=== PATIENT | female | born 1960 | race Caucasian/White ===

== ENCOUNTER 2018-10-16 17:56 | Emergency (ER) | payer MEDICAID, SELFPAY ==
[2018-10-16 17:56] VITALS: BP 161/80; PULSE 86; RESP 18; TEMP 36.8; O2SAT 97; BMI 42.6
[2018-10-16] MEDS: Orphenadrine 60 MG/2 ML Ampul IM (18:47)
[2018-10-16] MEDS: Ketorolac 30 MG/ML Syringe IM (18:47)
--- NOTE | 2018-10-16 18:50 | RAD_ITS ---
STUDY: X-RAY - LUMBAR SPINE REASON FOR EXAM: Female, 58 years old. Low back pain 2 days after straining back. TECHNIQUE: 3 view(s) of the lumbar spine were obtained. COMPARISON: None FINDINGS: Normal lumbar lordosis. There is no substantial scoliosis. There is a normal alignment of the vertebrae. There is anterior endplate osteophyte formation at L2-3, and minor anterior endplate spurring at L3-4 There is multi-level degenerative disc disease with multi-level mild to moderate disc space narrowing. There is no demonstrated fracture. Degenerative changes noted in the lower lumbar facet joints. Surgical clips of prior cholecystectomy project in the right upper quadrant of the abdomen. RAD/Lumbar Spine 2 or 3 Views IMPRESSION: Degenerative changes of the spine, as detailed above. There is no demonstrated acute fracture. Electronically Signed: Jan Beckett MD at 19:14 EDT , Service support ,
--- NOTE | 2018-10-16 19:46 | ED.VISSUMM ---
- ER Visit Summary Date of Service: 10/16/18 Chief Complaint: Back pain History of Present Illness: The patient is a 58 F with back pain after sitting on a new couch constantly for the past 2 to 3 days. Apparently she got a new couch she has been sitting on it and it is more stiff than her prior couch. No other factors. She has no radiation to her leg no bowel or bladder compromise. Physical Examination: Otherwise normal exam no suprapubic mass, tenderness is in the lower spinal region L2-L5 and paraspinal region. Negative straight leg test. Normal reflexes normal plantar flexion dorsiflexion of both feet and great toes bilaterally. Emergency Department Course and Treatment: LS spine x-ray is negative. I will discharge with analgesia. Disposition: [Discharge stable condition] Impression: [Lumbar strain] This note was generated with [employer] dictation software. It may contain incorrect words, spelling, and punctuation that were not noted in review of the chart prior to signing ED Disposition - Plan for ED Patient: Disposition: Home or Assisted Living Instructions: ED Sprain Strain Lumbar Prescriptions: Naproxen [Naprosyn] 500 mg PO BID PRN #20 tab cycloBENZAPRine HCl [Flexeril] 10 mg PO TID PRN #20 tab PRN Reason: Muscle Spasm Referrals: Sarah Jimenez, COATING TECHNICIAN-C [Primary Care Provider] - 3-5 Days
--- NOTE | 2018-10-16 19:50 | ED.DCSUM_ITS ---
- ER Visit Summary Date of Service: 10/16/18 Chief Complaint: Back pain History of Present Illness: The patient is a 58 F with back pain after sitting on a new couch constantly for the past 2 to 3 days. Apparently she got a new couch she has been sitting on it and it is more stiff than her prior couch. No other factors. She has no radiation to her leg no bowel or bladder compromise. Physical Examination: Otherwise normal exam no suprapubic mass, tenderness is in the lower spinal region L2-L5 and paraspinal region. Negative straight leg test. Normal reflexes normal plantar flexion dorsiflexion of both feet and great toes bilaterally. Emergency Department Course and Treatment: LS spine x-ray is negative. I will discharge with analgesia. Disposition: [Discharge stable condition] Impression: [Lumbar strain] This note was generated with [employer] dictation software. It may contain incorrect words, spelling, and punctuation that were not noted in review of the chart prior to signing ED Disposition - Plan for ED Patient: Disposition: Home or Assisted Living Instructions: ED Sprain Strain Lumbar Prescriptions: Naproxen [Naprosyn] 500 mg PO BID PRN #20 tab cycloBENZAPRine HCl [Flexeril] 10 mg PO TID PRN #20 tab PRN Reason: Muscle Spasm Referrals: Sarah Jimenez, ENGINE CLEANER-C [Primary Care Provider] - 3-5 Days
[2018-10-16 20:10] VITALS: BP 113/66; PULSE 74; RESP 18; O2SAT 96
== END 2018-10-16 20:11 | disposition home or self-care (01) ==
PROVIDERS: Emergency Provider Emergency Medicine; Family Provider Nurse Practitioner Family; PCP Nurse Practitioner Family
DX: S39.012A Strain of muscle, fascia and tendon of lower back, initial encounter (principal); I10 Essential (primary) hypertension; Z72.0 Tobacco use; Z79.899 Other long term (current) drug therapy; X50.9XXA Other and unspecified overexertion or strenuous movements or postures, initial encounter; Y93.89 Activity, other specified; Y92.008 Other place in unspecified non-institutional (private) residence as the place of occurrence of the external cause; Y99.8 Other external cause status
CPT/HCPCS: 72100; 96372; 99282

== ENCOUNTER 2018-11-02 09:20 | Emergency (ER) | payer MEDICAID, SELFPAY ==
[2018-11-02 09:22] VITALS: BP 161/112; PULSE 115; RESP 16; TEMP 37.2; O2SAT 94; BMI 40.9
--- NOTE | 2018-11-02 09:48 | ED.VIS.GEN ---
History of Present Illness Chief Complaint: Asthma Informant: Patient Onset: Days Current Severity: Mild Narrative: Reports history of asthma and chronic cough and smoking, she reports for the last 3 days her cough seems worse she still has a sense of wheezing despite using her hand-held nebulizer and rescue inhaler she presents the emergency department. No fever no cough that is different really just persistent no sputum no chest pain abdominal pain history of MS PE or DVT indicates her cough and wheezing are generally well controlled she is not recently been on steroids she has no history of CHF or pneumonias Past Medical History - Allergies and Home Meds Allergies/Adverse Reactions: Allergies bacitracin Allergy (Verified 11/02/18 09:21) Swelling Penicillins Allergy (Verified 11/02/18 09:21) Shortness of breath Sulfa (Sulfonamide Antibiotics) Allergy (Verified 11/02/18 09:21) Hives Primary Care Physician: Sarah Jimenez NP-C [Primary Care Provider] - Past Medical History: - Surgical History: cholecystectomy Smoking Status: Current every day smoker Review of Systems ROS: - See above General: Denies: Chills, Fever, Sweats Eyes: Denies: Visual changes - bilaterally, Diplopia ENT: Denies: Rhinorrhea, Sore throat Cardiovascular: Denies: Chest pain, Palpitations Respiratory: Reports: Cough. Denies: Dyspnea, Dyspnea on exertion Gastrointestinal: Denies: Abdominal pain, Nausea, Vomiting, Diarrhea, Melena, Hematochezia Genitourinary: Denies: Dysuria, Hematuria, Frequency Musculoskeletal: Denies: Back pain, Extremity Pain Skin: Denies: Rash, Wounds Neurological: Denies: Headache, Weakness, Numbness Physical Exam Vital Signs/Narrative: Vital Signs Temp Pulse Resp BP Pulse Ox 11/02/18 09:22 98.9 F 115 H 16 161/112 H 94 General: Well nourished, Well developed, No Acute Distress Head: Normocephalic, Atraumatic Eyes: Perrl, EOMI ENT: Moist mucous membranes, No rhinorrhea Neck: Supple, Nontender Cardiovascular: Regular rate, Regular rhythm, No murmurs Respiratory: No distress, CTA bilaterally, Chest nontender, Wheezing, - - Is minimal wheezing good excursion her pulse ox is 95 she is speaking full sense that she has a dry cough here but is nonproductive and persistent Abdomen: Soft, Nontender, Nondistended, Normal bowel sounds Back: Nontender, Normal Inspection Extremities: Nontender, No edema Skin: Normal color, No rash Neurological: Alert, Oriented x3, Cranial nerves II-XII grossly intact, Normal Strength, Normal Sensation Psychological: Normal affect, Normal Mood Diagnostic/Tx/Re-eval - Medical Decision Making Her main issue seems to be this harsh dry cough that she has had for a few days that appears to be causing her to wheeze Patient's chest x-ray shows nothing acute or gross see that report, on reevaluation she is resting comfortably she is received aerosol she is feeling better Kenalog IM was also given, we discussed inpatient versus outpatient management she states she wants to go home she feels if she can manage her asthma at home, did discuss the concept of the potential right lower lobe infiltrate radiology noted on x-ray she will be started on Levaquin however she is out of all of her medicines and will be provided refills for her nebulizer and handheld and she will follow-up with her physicians in the next day or to return for change in symptoms Home stable Final impression Right lower lobe infiltrate Acute exacerbation of asthma improved ED Disposition - Plan for ED Patient: Diagnosis: Chronic bronchitis, Asthma attack, Pneumonia Instructions: ASTHMA, Acute (Adult) Prescriptions: Levofloxacin [Levaquin] 750 mg PO DAILY #7 tab Prescription Printed Albuterol Aerosols [Ventolin Aerosols] 2.5 mg INHALATION Q4H PRN #25 vial Prescription Printed Albuterol Inhaler [Ventolin Hfa] 1 - 2 puff INHALATION Q4H PRN PRN #1 inhaler PRN Reason: Wheezing Prescription Printed Referrals: Sarah Jimenez NP-C [Primary Care Provider] -
[2018-11-02] MEDS: Ipratropium/Albuterol Sulfate 3 ML AMPUL.NEB INHALATION ×2 (09:51→12:01)
[2018-11-02 09:54] VITALS: PULSE 97; RESP 35
[2018-11-02] MEDS: Triamcinolone Acetonide 40 MG/ML Vial IM (09:56)
--- NOTE | 2018-11-02 10:15 | RAD_ITS ---
HISTORY: Shortness of breath intermittently 3 days XR Chest 2 Views TECHNIQUE: Frontal and lateral views of chest. # of images incl. paperwork: 2 COMPARISON: 05/07/2014 FINDINGS: Normal cardiomediastinal silhouette. Pulmonary vasculature appears normal. Very subtle patchy alveolar opacities right lower lobe seen on the frontal projection versus artifactual due to summation shadows. Otherwise, remainder of the lungs are clear. No pleural effusions or pneumothorax. No acute osseous abnormality of the thorax. RAD/Chest PA and Lateral IMPRESSION: 1. Query subtle right lower lobe airspace disease which may represent pneumonitis versus artifactual due to summation shadows. 2. No other acute cardiopulmonary disease. at 1307 Reported and signed by: Misha Orellana MD Electronically Signed: Misha Orellana MD at 13:06 EDT Tel , Service support ,
[2018-11-02 11:57] VITALS: BP 155/86; PULSE 92; RESP 18; O2SAT 92
[2018-11-02 12:03] VITALS: PULSE 93; RESP 24
[2018-11-02 13:10] VITALS: BP 165/77; PULSE 87; RESP 16; O2SAT 93
[2018-11-02 13:55] VITALS: BP 180/74; PULSE 92; RESP 15; O2SAT 96
[2018-11-02] MEDS: levoFLOXacin 750 MG Tablet PO (13:55)
== END 2018-11-02 13:57 | disposition home or self-care (01) ==
LOC: ED 10:34
PROVIDERS: Emergency Provider Emergency Medicine; Family Provider Nurse Practitioner Family; PCP Nurse Practitioner Family
DX: J18.9 Pneumonia, unspecified organism (principal); J45.909 Unspecified asthma, uncomplicated; Z79.51 Long term (current) use of inhaled steroids
CPT/HCPCS: 71046; 94640; 96372; 99282

== ENCOUNTER → 2018-12-01 | Outpatient (CLI) | payer MEDICAID, SELFPAY ==
[2018-11-02 09:22] VITALS: BMI 40.9
--- NOTE | 2018-12-01 11:35 | BI_ITS ---
MAMMOGRAPHY - BILATERAL SCREENING REASON FOR EXAM: Female, 58 years old. Routine annual screening examination. PERTINENT HISTORY: Grandmother with breast cancer. TECHNIQUE: Digital bilateral breast wen (3D mammographic acquisition) in the CC and MLO projections. 2-D mediolateral oblique (MLO) and craniocaudad (CC) views of both breasts were obtained. CAD: Full Field Digital Mammography with Computer Added Detection was performed. COMPARISON: Comparison is made with prior examination of July 30, 2016. FINDINGS: Breast Composition: There are scattered areas of fibroglandular density. There are no dominant masses or suspicious calcifications. Stable small benign-appearing bilateral axillary lymph nodes. No other significant abnormalities are identified. There has been no significant change since the prior study. BI/SCREEN MAMM (CAD) W/WEN BILAT IMPRESSION: Stable bilateral screening mammogram. Yearly follow-up mammogram recommended. (A) ASSESSMENT CATEGORY: BIRADS Category 2: Benign. A letter regarding these results will be sent to the patient by the facility within 30 days. Approximately 10% of breast cancers are not detected by mammography. A normal mammogram should not delay biopsy of a clinically suspicious abnormality. [id number] Electronically Signed: Maurice Butler, at 14:01 EDT , Service support ,
== END | disposition home or self-care (01) ==
LOC: OPBI 11:34
DX: Z12.31 Encounter for screening mammogram for malignant neoplasm of breast (principal)
CPT/HCPCS: 77063; 77067

== ENCOUNTER → 2019-01-30 | Outpatient (CLI) | payer MEDICAID, SELFPAY ==
--- NOTE | 2019-01-30 08:37 | NM_ITS ---
CLINICAL: 58-year-old female with reported history of heat intolerance and unexpected weight gain. I-123 THYROID UPTAKE COMPARISON: None available FINDINGS: The patient was administered a 304 uCi I-123 capsule by mouth. The 24-hour I-123 radioactive iodine thyroidal uptake was calculated to be 18.6 % (normal 5 to 40 %). The I-123 thyroid scan was not obtained. NM/Thyroid Uptake Single or Mult IMPRESSION: 1. NORMAL 24-hour I-123 radioactive iodine thyroidal uptake. 2. The I-123 thyroid scan was not acquired. Electronically Signed: Rey Eid DO at 8:22 EDT Tel , Service support ,
== END | disposition home or self-care (01) ==
LOC: NM 08:36
PROVIDERS: Referring Provider Nurse Practitioner Family; Visit Provider Nurse Practitioner Family
DX: R94.6 Abnormal results of thyroid function studies (principal)
CPT/HCPCS: 78012; A9516

== ENCOUNTER 2019-02-13 13:24 | Emergency (ER) | payer MEDICAID, SELFPAY ==
[2019-02-13 13:26] VITALS: BP 165/110; PULSE 128; RESP 16; TEMP 36.6; O2SAT 97; BMI 42.0
--- NOTE | 2019-02-13 14:17 | ED.VIS.GEN ---
History of Present Illness Chief Complaint: Abscess Narrative: Patient presenting due to concern for an abscess. Patient states that over the course of the last 3 days she has been developing a lump in her right groin that is painful. She does endorse that she has been having some mild nausea and chills associated with this. She denies any measurable fevers. She denies any prior similar episodes in the past. Patient states that she does not have a history of diabetes. Pain is sharp worse with palpation and movement. Review of systems otherwise negative. Past Medical History - Allergies and Home Meds Allergies/Adverse Reactions: Allergies bacitracin Allergy (Verified 02/13/19 13:26) Swelling Penicillins Allergy (Verified 02/13/19 13:26) Shortness of breath Sulfa (Sulfonamide Antibiotics) Allergy (Verified 02/13/19 13:26) Hives Primary Care Physician: aKylah Aguirre [Primary Care Provider] - Past Medical History: - - Hypertension Surgical History: cholecystectomy Smoking Status: Current every day smoker Review of Systems All systems negative except as indicated General: Reports: Chills Skin: Reports: Abscess Physical Exam Vital Signs/Narrative: Vital Signs Temp Pulse Resp BP Pulse Ox 02/13/19 13:26 97.8 F 128 H 16 165/110 H 97 Inital Vital Signs reviewed: Yes General: Well nourished, Well developed, No Acute Distress Head: Normocephalic, Atraumatic Eyes: Perrl, EOMI ENT: Moist mucous membranes, No rhinorrhea Neck: Supple, Nontender Cardiovascular: Regular rate, Regular rhythm, No murmurs Respiratory: No distress, CTA bilaterally, Chest nontender Abdomen: Soft, Nontender, Nondistended, Normal bowel sounds : - - Chaperoned exam shows evidence of a area of fluctuance just to the right lateral side of the patient's right labia majora. There is fluctuance about 2 cm in length. There is induration that measures may be about 10 cm with overlying erythema. Back: Nontender, Normal Inspection Extremities: Nontender, No edema Skin: Normal color, No rash Neurological: Alert, Oriented x3, Cranial nerves II-XII grossly intact, Normal Strength, Normal Sensation Psychological: Normal affect, Normal Mood Diagnostic/Tx/Re-eval - Medical Decision Making Patient presented secondary to a groin abscess. This does not seem to have evidence of Leonor's gangrene, patient is otherwise nontoxic. He was incised and drained as noted in the procedure note. Given the overlying skin changes she will be placed on a course of doxycycline due to medication allergies. She will follow-up with primary care for packing removal and wound recheck. Procedures Procedure(s): Patient was placed in a supine position. Direct lighting was utilized, area was cleansed with an alcohol prep. A total of 10 cc of 1% lidocaine were injected to achieve anesthesia. An 11 blade was used with a stab incision approximately 1 cm long. Copious amounts of foul-smelling purulence were expressed. The area was probed and deloculated with curved hemostats. It was then copiously irrigated with saline, and quarter inch iodoform packing was then placed. ED Disposition - Plan for ED Patient: Disposition: Home or Assisted Living Diagnosis: Groin abscess Instructions: ABSCESS, Incision and Drainage Prescriptions: Doxycycline 100 mg PO BID #20 cap Prescription Printed Referrals: Kaylah Aguirre [Primary Care Provider] - 2 Days for wound check
[2019-02-13 14:30] VITALS: TEMP 36.6
== END 2019-02-13 14:45 | disposition home or self-care (01) ==
PROVIDERS: Emergency Provider Emergency Medicine
DX: L02.214 Cutaneous abscess of groin (principal); I10 Essential (primary) hypertension; F17.200 Nicotine dependence, unspecified, uncomplicated

== ENCOUNTER 2019-02-13 15:42 | Emergency (ER) | payer MEDICAID, SELFPAY ==
[2019-02-13 13:26] VITALS: BMI 42.0
[2019-02-13 15:43] VITALS: BP 133/73; PULSE 123; RESP 18; TEMP 39.4; O2SAT 95; BMI 42.0
--- NOTE | 2019-02-13 15:54 | ED.VIS.GEN ---
History of Present Illness Chief Complaint: Fever Informant: Patient Onset: Today Current Severity: Moderate Maximum Severity: Moderate Narrative: Patient returns to the ED via EMS. She was just discharged from the ED after having a right labial/groin abscess drained. Patient states she was at the pharmacy to get her prescriptions when she started having shaking chills. This persisted for 1/2-hour. Staff at the pharmacy called the emergency squad for her. She states for the time they arrived her chills had resolved. She states over the past couple days she had some mild chills and some body aches. Past Medical History - Allergies and Home Meds Allergies/Adverse Reactions: Allergies bacitracin Allergy (Verified 02/13/19 13:26) Swelling Penicillins Allergy (Verified 02/13/19 13:26) Shortness of breath Sulfa (Sulfonamide Antibiotics) Allergy (Verified 02/13/19 13:26) Hives Primary Care Physician: Kaylah Aguirre [Primary Care Provider] - Prior records reviewed: Yes Past Medical History: - - Reviewed Surgical History: cholecystectomy Smoking Status: Current every day smoker Review of Systems General: Reports: Chills, Fever Eyes: Denies: Visual changes - bilaterally ENT: Denies: Bilateral ear pain Cardiovascular: Denies: Chest pain Respiratory: Denies: Dyspnea Gastrointestinal: Denies: Abdominal pain Genitourinary: Reports: - - Right groin pain Musculoskeletal: Denies: Extremity Pain Skin: Denies: Rash Neurological: Denies: Headache Physical Exam Vital Signs/Narrative: Vital Signs Temp Pulse Resp BP Pulse Ox 02/13/19 15:43 103 F H 123 H 18 133/73 H 95 Inital Vital Signs reviewed: Yes General: Well nourished, Well developed Head: Normocephalic ENT: Moist mucous membranes Cardiovascular: Tachycardia Respiratory: No distress, CTA bilaterally Abdomen: Soft, Nontender Rectal: - - Right labial I&D site is clean. Packing is intact. No significant surrounding cellulitis. Neurological: Alert, Oriented x3 Psychological: Normal affect Diagnostic/Tx/Re-eval Laboratory Results 02/13/19 02/13/19 16:05 16:05 WBC 7.7 RBC 4.19 L Hgb 12.4 Hct 38.2 MCV 91.2 MCH 29.6 MCHC 32.5 RDW Std Deviation 45.3 H RDW Coeff of Keaton 13.5 Plt Count 189 MPV 10.2 Immature Gran % (Auto) 0.400 Neut % (Auto) 85.9 H Lymph % (Auto) 9.7 L [place] % (Auto) 2.7 Eos % (Auto) 1.0 Baso % (Auto) 0.3 Absolute Neuts (auto) 6.6 Absolute Lymphs (auto) 0.75 L Nucleated RBC % 0 Sodium 140 Potassium 4.2 Chloride 107 Carbon Dioxide 26.0 Anion Gap 7 BUN 24 H Creatinine 1.03 H Estim Creat Clear Calc 42.76 Est GFR (MDRD) Af Amer 71 Est GFR (MDRD) Non-Af 58 L BUN/Creatinine Ratio 23.3 H Glucose 124 H Calcium 9.0 - Medical Decision Making Patient was given Tylenol and a liter of IV fluid. 1 hour later her oral temperature still read 103. She was given a dose of ibuprofen. After 45 minutes temperature is now 101.4. She states she feels sweaty and I believe her fever just recently broke. She will continue Tylenol and ibuprofen at home. She will continue her doxycycline that was ordered earlier today. She is to follow-up in 2 days for wound check and wick removal. ED Disposition - Plan for ED Patient: Disposition: Home or Assisted Living Diagnosis: Fever, Abscess Instructions: ABSCESS, Incision and Drainage, FEVER CONTROL (Adult) Referrals: Kaylah Aguirre [Primary Care Provider] - 2 Days Additional Instructions: Tylenol given at 4:10pm Ibuprofen given at 5:15pm
[2019-02-13 16:08] VITALS: TEMP 39.6
[2019-02-13] MEDS: Acetaminophen 500 MG Tablet 1000 MG PO (16:10)
[2019-02-13] MEDS: 0.9% Normal Saline 1,000 ML 1000 ML IV (16:10)
[2019-02-13 16:15] LABS: Absolute Lymphocyte Count 0.75 X10^3/uL (0.83-4.51); Absolute Neutrophil Count 6.6 X10^3/uL (2.0-7.7); Basophil# 0.02 X10^3/uL; Basophil% 0.3 % (0-1); Eosinophil# 0.08 X10^3/uL; Hematocrit 38.2 % (37-47); Hemoglobin 12.4 g/dL (12.0-15.0); Lymphocyte # 0.75 X10^3/ul (4.0); Lymphocyte % 9.7 % (19-41); Mean Corp Hgb Conc 32.5 g/dL (32-36); Mean Corpuscular Hgb 29.6 pg (27.0-32.0); Mean Corpuscular Volume 91.2 fL (81-99); Mean Platelet Vol. 10.2 fl (6.2-12.0); Monocyte# 0.21 X10^3/uL; Monocyte% 2.7 % (0-10); NRBC Flagged by Analyzer 0 % (0-5); Neutrophil # 6.62 X10^3/uL (2.7-7.7); Neutrophil % 85.9 % (47-70); Platelet Count 189 K/mm3 (150-450); RBC Distribution Width CV 13.5 % (11.6-14.6); RBC Distribution Width SD 45.3 fl (35.1-43.9); Red Blood Count 4.19 M/mm3 (4.2-5.4); White Blood Count 7.7 K/mm3 (4.4-11.0)
[2019-02-13 16:34] LABS: Anion Gap 7 (5-15); BUN 24 mg/dL (7-18); BUN/Creat Ratio 23.3 RATIO (10-20); Chloride 107 mmol/L (98-107); Creatinine, Serum 1.03 mg/dL (0.55-1.02); EST Glomerular Filtration Rate 58 mL/min (>60); Est Glom Filt Rate - Afr Amer 71 mL/min (>60); Estimated Creatinine Clearance 42.76 ml/min; Glucose 124 mg/dL (74-106); Potassium 4.2 mmol/L (3.5-5.1); Sodium Level 140 mmol/L (136-145)
[2019-02-13 17:00] VITALS: BP 131/57; PULSE 110; RESP 18; TEMP 39.4; O2SAT 97
[2019-02-13] MEDS: Ibuprofen 600 MG Tablet PO (17:12)
[2019-02-13 18:06] VITALS: BP 106/49; PULSE 108; PULSE 110; RESP 18; TEMP 38.6; O2SAT 97
[2019-02-13 18:20] VITALS: BP 106/49; PULSE 104; RESP 18; TEMP 38.3; O2SAT 97
== END 2019-02-13 18:22 | disposition home or self-care (01) ==
PROVIDERS: Emergency Provider Emergency Medicine
DX: R50.9 Fever, unspecified (principal); L02.214 Cutaneous abscess of groin; I10 Essential (primary) hypertension; F17.200 Nicotine dependence, unspecified, uncomplicated
CPT/HCPCS: 10060; 80048; 85025; 96360; 99282; 99285; J7030; A4216

== ENCOUNTER → 2019-07-03 09:46 | Outpatient (CLI) | payer MEDICAID, SELFPAY ==
--- NOTE | 2019-07-03 09:51 | NM_ITS ---
CLINICAL: 58-year-old female with reported history of clinical thyrotoxicosis. I-123 THYROID UPTAKE and SCAN COMPARISON: I-123 thyroid uptake 01/31/2019 FINDINGS: The patient was administered a 290 uCi I-123 capsule by mouth. The 4-hour I-123 radioactive iodine thyroidal uptake was calculated to be 10.6 % (normal 5 to 25 %). The 24-hour I-123 radioactive iodine thyroidal uptake was calculated to be 30.7 % (normal 5 to 40 %) compared to 18.6% defined on the examination dated 01/31/2019. The I-123 thyroid scan demonstrates homogeneous radiopharmaceutical concentration throughout both lobes of a U-shaped thyroid gland. There are no colloidal parenchymal hypofunctioning-cold nodules noted in either lobe of the thyroid gland. NM/Thyroid Uptake Single or Mult IMPRESSION: 1. NORMAL 4- and 24-hour I-123 radioactive iodine thyroidal uptakes. 2. 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 Electronically Signed: Rey Eid DO at 10:21 EST Tel , Service support ,
== END ==
DX: R94.6 Abnormal results of thyroid function studies (principal)
CPT/HCPCS: 78012; A9516

== ENCOUNTER → 2020-01-10 07:37 | Outpatient (CLI) | payer MEDICAID, SELFPAY ==
--- NOTE | 2020-01-10 07:40 | BI_ITS ---
MAMMOGRAPHY - BILATERAL SCREENING REASON FOR EXAM: Female, 59 years old. Routine annual screening examination. PERTINENT HISTORY: Grandmother with breast cancer. Aunt with breast cancer. TECHNIQUE: Digital bilateral breast wen (3D mammographic acquisition) in the CC and MLO projections. 2-D mediolateral oblique (MLO) and craniocaudad (CC) views of both breasts were obtained. CAD: Full Field Digital Mammography with Computer Added Detection was performed. COMPARISON: Comparison is made with prior study dated 12/01/2018 and 07/30/2016. FINDINGS: Breast Composition: There are scattered areas of fibroglandular density. There are no dominant masses or suspicious calcifications. Stable benign-appearing bilateral axillary lymph nodes. No other significant abnormalities are identified. There has been no significant change since the prior study. BI/SCREEN MAMM (CAD) W/WEN BILAT IMPRESSION: Stable bilateral screening mammogram. Yearly follow-up mammogram recommended. (A) ASSESSMENT CATEGORY: BIRADS Category 2: Benign. A letter regarding these results will be sent to the patient by the facility within 30 days. Approximately 10% of breast cancers are not detected by mammography. A normal mammogram should not delay biopsy of a clinically suspicious abnormality. [id number] Electronically Signed: Maurice Butler, at 8:57 EDT , Service support ,
== END ==
PROVIDERS: Referring Provider Nurse Practitioner Family; Visit Provider Nurse Practitioner Family
DX: Z12.31 Encounter for screening mammogram for malignant neoplasm of breast (principal)
CPT/HCPCS: 77063; 77067

== ENCOUNTER → 2020-03-28 08:19 | Outpatient (CLI) | payer MEDICAID, SELFPAY ==
[2020-03-28 09:08] LABS: Basophil% 0.7 % (0-1); Eosinophils% 4.1 % (0-5); Hematocrit 38.4 % (37-47); Hemoglobin 12.3 g/dL (12.0-15.0); Lymphocyte % 21.1 % (19-41); Mean Corpuscular Hgb 28.7 pg (27.0-32.0); Mean Corpuscular Volume 89.7 fL (81-99); Mean Platelet Vol. 10.4 fl (6.2-12.0); Monocyte% 6.8 % (0-10); Neutrophil % 66.9 % (47-70); Platelet Count 221 K/mm3 (150-450); RBC Distribution Width CV 13.1 % (11.6-14.6); RBC Distribution Width SD 43.1 fl (35.1-43.9); Red Blood Count 4.28 M/mm3 (4.2-5.4); White Blood Count 7.3 K/mm3 (4.4-11.0)
[2020-03-28 09:09] LABS: Absolute Lymphocyte Count 1.54 X10^3/uL (0.83-4.51); Absolute Neutrophil Count 4.9 X10^3/uL (2.0-7.7); Basophil# 0.05 X10^3/uL; Lymphocyte # 1.54 X10^3/ul (4.0); NRBC Flagged by Analyzer 0 % (0-5); Neutrophil # 4.88 X10^3/uL (2.7-7.7)
[2020-03-28 09:57] LABS: ALB/GLOB Ratio 0.8 RATIO (0.9-2.4); AST(SGOT) 21 U/L (15-37); Alanine Aminotransfer ALT/SGPT 30 U/L (13-56); Albumin, Serum 3.4 g/dL (3.2-5.0); Alkaline Phosphatase 95 U/L (45-117); Anion Gap 3 (5-15); BUN 22 mg/dL (7-18); Calcium,Total 8.9 mg/dL (8.5-10.1); Chloride 108 mmol/L (98-107); Cholesterol 236 mg/dL (200); EST Glomerular Filtration Rate 54 mL/min (>60); Est Glom Filt Rate - Afr Amer 65 mL/min (>60); Globulin 4.4 g/dL (2.2-4.2); Glucose 103 mg/dL (74-106); High Density Lipoprotein 42 mg/dL; Potassium 4.5 mmol/L (3.5-5.1); Protein, Total 7.8 g/dL (6.4-8.2); Sodium Level 140 mmol/L (136-145); Triglycerides 291 mg/dL; Very Low Density Lipoprotein 58 mg/dL (5-40)
== END ==
DX: J45.909 Unspecified asthma, uncomplicated (principal); I10 Essential (primary) hypertension; E78.5 Hyperlipidemia, unspecified
CPT/HCPCS: 36415; 80053; 80061; 85025

== ENCOUNTER 2020-04-14 11:29 | Emergency (ER) | payer MEDICAID, SELFPAY ==
[2020-04-14 11:33] VITALS: BP 156/74; PULSE 93; RESP 16; TEMP 35.5; O2SAT 98; BMI 36.0
--- NOTE | 2020-04-14 12:09 | ED.VIS.GEN ---
History of Present Illness Chief Complaint: Lower Extremity Injury Informant: Patient Narrative: 59-year-old female states that yesterday she was pulling a wagon with heavy wet clothes in it. She took a step and felt a pop in the posterior aspect of her knee. She was able to continue walking though painful. She states that today it is more painful she has discomfort on the distal hamstring region. She states the pain radiates anteriorly. She denies ever having anything wrong with this knee in the past. - Past Medical History (1) GERD (gastroesophageal reflux disease) Status: Chronic (2) Chronic bronchitis Status: Chronic Past Medical History - Allergies and Home Meds Allergies/Adverse Reactions: Allergies bacitracin Allergy (Verified 04/14/20 11:31) Swelling Penicillins Allergy (Verified 04/14/20 11:31) Shortness of breath Sulfa (Sulfonamide Antibiotics) Allergy (Verified 04/14/20 11:31) Hives [facility] - Prior records reviewed: Yes Surgical History: cholecystectomy Smoking Status: Current every day smoker Drugs: None Review of Systems General: Denies: Chills, Fever, Sweats Eyes: Denies: Visual changes - bilaterally, Diplopia ENT: Denies: Rhinorrhea, Sore throat Cardiovascular: Denies: Chest pain, Palpitations Respiratory: Denies: Dyspnea, Cough, Dyspnea on exertion Gastrointestinal: Denies: Abdominal pain, Nausea, Vomiting, Diarrhea, Melena, Hematochezia Genitourinary: Denies: Dysuria, Hematuria, Frequency Musculoskeletal: Reports: Extremity Pain. Denies: Back pain Skin: Denies: Rash, Wounds Neurological: Denies: Headache, Weakness, Numbness Physical Exam Vital Signs/Narrative: Vital Signs Temp Pulse Resp BP Pulse Ox 04/14/20 11:33 96 F L 93 16 156/74 H 98 Inital Vital Signs reviewed: Yes General: Well nourished, Well developed, Obese, No Acute Distress Head: Normocephalic, Atraumatic Eyes: Perrl, EOMI ENT: Moist mucous membranes, No rhinorrhea Neck: Supple, Nontender Cardiovascular: Regular rate, Regular rhythm, No murmurs Respiratory: No distress, CTA bilaterally, Chest nontender Abdomen: Soft, Nontender, Nondistended, Normal bowel sounds Back: Nontender, Normal Inspection Extremities: No edema, Tenderness - No obvious effusion is palpated. No joint line tenderness. Ligaments are stable. No fullness in the popliteal fossa. Over the distal hamstring muscle and tendons. Skin: Normal color, No rash Neurological: Alert, Oriented x3, Cranial nerves II-XII grossly intact, Normal Strength, Normal Sensation Psychological: Normal affect, Normal Mood Diagnostic/Tx/Re-eval - Medical Decision Making My interpretation of the plain films of the left knee are negative for acute. The patient will be given crutches and Flaco wrap. Instructions to follow-up if not improved 10 to 14 days. ED Disposition - Plan for ED Patient: Disposition: Home or Assisted Living Diagnosis: Strain of left knee Instructions: ED Muscle Strain, Extremity, ED Knee Sprain Referrals: [facility],Kaylah Barbosa [Primary Care Provider] - 10-14 Days if not better
--- NOTE | 2020-04-14 12:30 | RAD_ITS ---
STUDY: X-RAY - LEFT KNEE REASON FOR EXAM: Female, 59 years old. PAIN TECHNIQUE: 4 view(s) of the knee. COMPARISON: None. FINDINGS: Normal visualized distal femur. Normal visualized proximal tibia and fibula. Normal proximal tibiofibular articulation. Normal medial femorotibial compartment. Normal lateral femorotibial compartment. Normal patellofemoral articulation. The soft tissue structures are unremarkable. RAD/Knee 4 or More Views IMPRESSION: Normal x-ray examination of the knee. Electronically Signed: Maurice Butler, at 14:25 EST , Service support ,
== END 2020-04-14 13:14 | disposition home or self-care (01) ==
LOC: ED 12:54
PROVIDERS: Emergency Provider Emergency Medicine
DX: S86.812A Strain of other muscle(s) and tendon(s) at lower leg level, left leg, initial encounter (principal); F17.200 Nicotine dependence, unspecified, uncomplicated; X58.XXXA Exposure to other specified factors, initial encounter
CPT/HCPCS: 73564; 99283

== ENCOUNTER → 2020-08-07 11:11 | Outpatient (CLI) | payer MEDICAID, SELFPAY ==
[2020-06-20 09:51] VITALS: BMI 43.0
--- NOTE | 2020-08-07 11:14 | EKG12_ITS ---
Test Reason : TACHY Blood Pressure : / mmHG Vent. Rate : 101 BPM Atrial Rate : 101 BPM P-R Int : 148 ms QRS Dur : 090 ms QT Int : 336 ms P-R-T Axes : 072 048 046 degrees QTc Int : 435 ms Sinus tachycardia Otherwise normal ECG Confirmed by STEPHANIE PENA, NATALIE ([id number]), editorial clerk CHRISTIANE HIDALGO ([id number]) on 08/11/2020 1:22:35 PM Referred By: [facility] Confirmed By:ALONDRA BROWN MD
== END ==
DX: R00.0 Tachycardia, unspecified (principal)
CPT/HCPCS: 93005

== ENCOUNTER → 2020-11-25 17:12 | Outpatient (CLI) | payer MEDICAID, SELFPAY ==
[2020-09-10 09:47] VITALS: BMI 36.0
--- NOTE | 2020-11-25 17:12 | MRI_ITS ---
STUDY: MRI RIGHT KNEE REASON FOR EXAM: Female, 60 years old. Knee pain. TECHNIQUE: Standardized fat and water weighted pulse sequences were obtained in all 3 orthogonal planes. COMPARISON: X-ray dated August 2020 FINDINGS: Patellofemoral articular cartilage preserved. Lateral compartment grade 2 cartilage loss of compressive sagittal image 14 series 3). Medial compartment grade 3/4 cartilage loss (sagittal image 29 series 3). Reactive bone marrow edema at the medial compartment. No acute fracture, dislocation or bone destruction. Lateral meniscus intact. Medial meniscus body/posterior horn radial tear (sagittal images 7 through 19 series 4). Chronic medial collateral ligament bowing with low-grade interstitial tear (coronal image 16 and axial image 17). Moderate volume joint effusion. No popliteal cyst. Mild soft tissue swelling. Normal distal semimembranosus, gracilis and semitendinosus tendons. Normal proximal tibiofibular articulation. Normal lateral collateral (fibular) ligament. Normal popliteus tendon. Normal biceps femoris tendon. Normal anterior cruciate ligament (ACL). Normal posterior cruciate ligament (PCL). Normal medial and lateral patellar retinaculum. Small quadriceps enthesophyte. Normal patellar tendon. Normal Hoffa''s fat pad. MRI/Lower Ext Joint Only (Routine) IMPRESSION: Medial meniscus body/posterior horn tear Chronic MCL bowing with low-grade interstitial tear Medial compartment moderate/severe cartilage loss with reactive bone marrow edema Lateral compartment mild cartilage loss Moderate volume joint effusion and soft tissue swelling Electronically Signed: Fredy Morejon DO at 9:09 EDT Tel , Service support ,
== END ==
DX: M17.11 Unilateral primary osteoarthritis, right knee (principal); M25.561 Pain in right knee
CPT/HCPCS: 73721

== ENCOUNTER → 2020-11-26 10:52 | Outpatient (CLI) | payer MEDICAID, SELFPAY ==
[2020-09-10 09:47] VITALS: BMI 36.0
[2020-11-26 12:19] LABS: ALB/GLOB Ratio 0.9 RATIO (0.9-2.4); AST(SGOT) 32 U/L (15-37); Alanine Aminotransfer ALT/SGPT 60 U/L (13-56); Albumin, Serum 3.6 g/dL (3.2-5.0); Alkaline Phosphatase 105 U/L (45-117); Anion Gap 6 (5-15); BUN 27 mg/dL (7-18); Calcium,Total 8.7 mg/dL (8.5-10.1); Chloride 107 mmol/L (98-107); Cholesterol 167 mg/dL (200); Creatinine, Serum 0.87 mg/dL (0.55-1.02); EST Glomerular Filtration Rate 70 mL/min (>60); Est Glom Filt Rate - Afr Amer 85 mL/min (>60); Globulin 3.8 g/dL (2.2-4.2); Glucose 94 mg/dL (74-106); High Density Lipoprotein 45 mg/dL; Potassium 4.3 mmol/L (3.5-5.1); Protein, Total 7.4 g/dL (6.4-8.2); Sodium Level 139 mmol/L (136-145); Triglycerides 154 mg/dL; Very Low Density Lipoprotein 31 mg/dL (5-40)
== END ==
DX: I10 Essential (primary) hypertension (principal); E78.5 Hyperlipidemia, unspecified
CPT/HCPCS: 36415; 80053; 80061

== ENCOUNTER 2020-12-09 06:26 | Day surgery (SDC) | payer MEDICAID, SELFPAY ==
[2020-12-03 10:51] VITALS: BMI 43.7
[2020-12-09] VITALS (7 sets, daily range): BP systolic 91–147; BP diastolic 58–79; PULSE 75–87; RESP 16–18; TEMP 36.2–36.7; O2SAT 93–100; BMI 42.9
--- NOTE | 2020-12-09 07:17 | HP.PCM_ITS ---
History and Physical Date of Admission: 12/09/20 Date of Service: 12/03/20 MR#:[id number]: OCHOA WHEELER ANNRep #:[id number]:1960 Provider:Dr. Jarred Burger DOAge/Sex: 60/F [place] [place] Intake Vital Signs 12/03/20 10:51 Height 5 ft Weight: 224 lb BMI 43.7 Intake Visit Reasons: RIGHT KNEE Is patient in pain?: Yes Allergies bacitracin Allergy (Verified 12/03/20 10:47) Swelling Penicillins Allergy (Verified 12/03/20 10:47) Shortness of breath Sulfa (Sulfonamide Antibiotics) Allergy (Verified 12/03/20 10:47) Hives Medications albuterol sulfate 1 - 2 puff INHALATION Q4H PRN PRN #1 inhaler 05/04/16 [Rx Confirmed 12/03/20] albuterol sulfate 2.5 mg INHALATION Q4H PRN #25 vial 05/04/16 [Rx Confirmed 12/03/20] lisinopril 20 mg PO DAILY 05/04/16 [History Confirmed 12/03/20] cholecalciferol (vitamin D3) 50,000 unit PO QWEEK 04/18/17 [History Confirmed 12/03/20] montelukast 10 mg PO DAILY 04/18/17 [History Confirmed 12/03/20] atorvastatin 10 mg tablet 10 mg PO tab 06/20/20 [History Confirmed 12/03/20] budesonide-formoterol HFA 80 mcg-4.5 mcg/actuation aerosol inhaler 2 puff INHALATION g 06/20/20 [History Confirmed 12/03/20] meloxicam 15 mg tablet 15 mg PO DAILY #30 tab 11/07/20 [Rx Confirmed 12/03/20] [facility] Medical History (Updated 12/03/20 @ 10:53 by Lisa Stephenson) HTN (hypertension) Social History (Updated 06/20/20 @ 10:[address] Jarred Burger DO) Smoking Status: Current every day smoker HPI RIGHT KNEE Details: Parts of this documentation were recorded by a scribe, this documentation accurately reflects the service provided and the decisions made by me, Dr. Jarred Burger DO 12/03/20 0733. OCHOA WHEELER is a 60 year old F here today for a followup after her right knee MRI. Patient states that she continues to have right painful mechanical medial knee pain. She complains of popping and clicking. She also notes that her knee shifts medially which is painful. She does feel the knee give out because of this. patient had an MRI which is here for review. She had one prior injection which was not helpful. Patient denies any bracing. She completed physical therapy which she stopped due to her popping per the therapists advice. She takes meloxicam for pain. ROS [facility] [place] Reports arthralgias, Reports joint swelling, Reports muscle weakness, Denies numbness and Denies tingling Skin/Breast Reports system reviewed and no additional complaints, except as documented Neuro Yes system reviewed and no additional complaints, except as documented, No numbness and No tingling Ortho Exam General General: Yes no acute distress Neurologic: Yes alert Psychologic: Yes reasonable and appropriate Right Knee Skin/Wound: Yes CDI, No erythema, No ecchymosis and Yes swelling Examination: Yes Med jt line tenderness KNEE: Bilateral lower extremity edema Skin/Wound: No erythema, No ecchymosis and No swelling Knee ROM: Yes ROM-Extension -20 to 0 (lacking 12 degrees) and Yes ROM-Flexion 0- 140 (90 degrees) Examination: Yes Med jt line tenderness, No Lat jt line tenderness, Yes Crepitus, No Pain with flexion, No Pain with extention, Yes Jamie's Test, No TTP Patellar tendon and No TTP Pes Anserine Stability: NML: Anterior Drawer, NML: Posterior Drawer, NML: Valgus 0, NML: Valgus 30, NML: Varus 0 and NML: Varus 30 Patella Grind: Yes Supplemental Info 11/25/2020 MRI right knee: Medial meniscus body and horn tear low-grade interstitial tear of MCL moderate to severe cartilage loss medial compartment mild lateral compartment cartilage loss joint effusion soft tissue swelling 09/07/2020 xray right knee: mild medial joint space and patellofemoral osteoarthritis. 04/14/2020 xray left knee: unremarkable Coding Level of Care Code Off vis,est,level 3 Diagnoses Acute medial meniscus tear of right knee S83.241A Osteoarthritis of right knee M17.11 Assessment and Plan Assessment and Plan (1) Acute medial meniscus tear of right knee: Status: Acute (2) Osteoarthritis of right knee: Status: Acute Plan - Dr. Jarred Burger, DO: Educated the patient about the anatomy of the knee and etiology of her pain. Spoke with the patient about a knee arthroscopy to help with her meniscus tear. Explained that she might continue to have the arthritis pain. She would need to decrease her BMI for a total knee arthroplasty, which is not a candidate for at this time. Spoke with the patient about the surgery procedure, risks and recovery. She will be on an aspirin for 2 weeks post op due to her current swelling. She will contact our office with her medication list. Reviewed the pre-operative plans with the patient. Risks and benefits of the procedure were fully explained, including but not limited to infection, neurovascular injury, continued pain, arthritis, stiffness, need for further surgery, re-injury, DVT, PE, general risks of anesthesia, and loss of limb or life. The patient understands all the risks and does wish to proceed with written consent. I would like her to take a baby aspirin twice a day for 3 weeks postop secondary to her lower extremity edema. Follow up for her 2 week post op or sooner if pain, swelling, numbness or associated symptoms, or concerns develop. All questions answered. Patient in agreement of plan. 12/03/20 1116<Electronically signed by Jarred Burger DO>Date Jarred Burger DO
[2020-12-09] MEDS: Lactated Ringers 1,000 ML 100 ML IV (07:23)
[2020-12-09] MEDS: Cefazolin 2 GM in 0.9% Normal Saline 100 ML IV (10:40)
[2020-12-09] MEDS: Epinephrine (1 mg/ml) 1 MG/ML VIAL (11:05)
[2020-12-09] MEDS: MethylPREDNISolone Acetate 40 MG/ML Vial IM (11:19)
[2020-12-09] MEDS: Bupivacaine Mpf 0.5% 30 ML VIAL (11:19)
[2020-12-09] MEDS: Lidocaine 1%/Epi 1:200 (30ml) 30 ML AMPUL (11:20)
--- NOTE | 2020-12-09 11:30 | OP.PCM_ITS ---
Report of Operation Description of Surgical Findings:: Preop diagnosis: Right knee medial meniscus tear DJD Postoperative diagnosis: Large radial tear medial meniscal body grade 4 cartilage wear medial femoral condyle diffuse grade 4 cartilage wear trochlea and a small area of grade 4 of the lateral femoral condyle Procedure: Right knee arthroscopic partial medial meniscectomy chondroplasty medial patellofemoral and lateral compartment Anesthesia: General Estimated blood loss: 5 mL Tourniquet time: 18 minutes 300 mmHg Complications: none Indication for procedure: 60-year-old female patient with ongoing mechanical knee pain who has failed conservative treatment who did have MRI of the medial meniscus tear and DJD the patient did wish to proceed with an elective arthroscopic surgery to attempt to alleviate the symptoms. Risk benefits and alternatives of the procedure were reviewed including risk of bleeding infection nerve artery tissue damage need for further surgery continued pain and expected postoperative course. Procedure: The patient was met in the preoperative holding area. The operative extremity was identified by both patient and physician and family and marked. Patient was brought back to the operating room on a wheeled cart and transferred to the operating table in the supine position. Anesthesia was started. A well- padded tourniquet was placed on the operative extremity. A lower extremity leg brambila was secured to the operative extremity. The contralateral extremity was well-padded and the end of the bed was flexed to 90 degrees. The patient was prepped and draped in the usual sterile fashion. A timeout was called to ensure the proper patient, procedure, and extremity were being contemplated. 0.5% Marcaine with epinephrine was injected into the planned incisional areas under the skin only. An Esmarch was used to exsanguinate the extremity and the tourniquet was inflated. An 11 blade scalpel was used to make a stab incision in the anterior lateral portal. The arthroscope was inserted into the intercondylar notch and inflow and outflow tubes were attached. Arthroscopic visualization began. The medial compartment was entered. An 18-gauge spinal needle was used to establish the placement for anterior medial portal. An 11 blade scalpel was used to make a stab incision. Blunt probe was inserted followed by a meniscal probe. There was a large complex tear of the body of the medial meniscus extending all the way to the periphery with a horizontal component in the posterior horn. With the use of arthroscopic biting instruments and a shaver and ArthroCare wand partial medial meniscectomy was performed chondroplasty was also performed on loose cartilage flaps and medial femoral condyle as well as trochlea and lateral femoral condyle the ACL was found to be intact. The lateral compartment was entered small area of grade 4 cartilage wear lateral femoral condyle The arthroscope was switched to the medial portal to complete the procedure. The medial and lateral gutters were inspected and were free of loose bodies. The patellofemoral joint was inspected grade 3 throughout the patella grade 4 in the trochlea. There was good patellar tracking. The knee was thoroughly irrigated and drained. An intra-articular injection with 5 cc 0.5% Marcaine plain and 40 mg of Depo-Medrol was injected intra-articularly. The arthroscope was removed the portals were closed with 3-0 nylon arthroscopic stitches. Followed by Xeroform 4 x 4's ABDs web roll and an Flaco wrap. The tourniquet was let down and the drapes were removed. All counts were correct. The patient was brought back to the PACU in stable condition.
--- NOTE | 2020-12-09 11:32 | PCM.DC ---
Discharge Instructions Activity Weight Bearing Status: Weight bearing as tolerated Keep extremity elevated above heart level: Operative Extremity Dressing / Incision Call your doctor if you observe: Shortness of breath and Chest pain Remove Dressing in: 2 days Additional Dressing/Incision Instructions:: Ice and elevate next 72 hours .keep dressing on clean and dry for 48 hours then may remove begin showering daily but do not submerge in tub or pool. After shower may apply Band-Aids . Encourage knee range of motion weightbearing as tolerated, use crutches until confident in knee then may discontinue. No strenuous activity. When not ambulating keep iced and elevated next 72 hours. Do not mix pain medication with recreational drugs or alcohol only take as prescribed can be addictive and abusive, call with any questions or concerns. Aspirin 81mg twice daily to decrease risk of blood clot. Follow Up Care Please Follow Up With: Jarred Burger DO When: 2 weeks Test Results: Test results from this visit will be discussed in further detail at your follow-up appointment, if applicable. Discharge Plan Admission Attending Provider: Jarred Burger [facility] Orders/Prescriptions Prescriptions: New oxycodone 5 mg tablet 5 mg PO Q4H PRN (Reason: pain) 7 Days Qty: 40 RF: 0 aspirin [Angi Chewable Aspirin] 81 mg tablet,chewable 81 mg PO BID Qty: 30 RF: 0 No Action atorvastatin 10 mg tablet 10 mg PO DAILY RF: 0 lisinopril 20 MG tablet 20 mg PO DAILY RF: 0 albuterol sulfate 1 INHALER inhaler 1 - 2 puff INHALATION Q4H PRN PRN (Reason: Wheezing) Qty: 1 RF: 0 montelukast 10 MG tablet 10 mg PO DAILY RF: 0 cholecalciferol (vitamin D3) 50,000 UNIT capsule 50,000 unit PO MO RF: 0 fluticasone propion-salmeterol 250-50 mcg/dose Blister With Device 1 inh INHALATION BID RF: 0 diclofenac sodium 75 mg Tablet,Delayed Release (Dr/Ec) 75 mg PO BID RF: 0 albuterol sulfate 2.5 MG/3 ML solution for nebulization 2.5 mg INHALATION Q4H PRN PRN (Reason: sob) RF: 0 [facility] - Disposition Disposition (needs filled in before D/C Order can be placed): Home, Self Care
== END 2020-12-09 13:29 | disposition home or self-care (01) ==
LOC: SDC 06:29 → AC 06:30
PROVIDERS: Referring Provider Orthopaedic Surgery; Visit Provider Orthopaedic Surgery
PROC: (CPT 29870; principal; 2020-12-09 10:00)
DX: S83.241A Other tear of medial meniscus, current injury, right knee, initial encounter (principal); X58.XXXA Exposure to other specified factors, initial encounter; Y93.9 Activity, unspecified; Y92.9 Unspecified place or not applicable; Y99.9 Unspecified external cause status; E66.9 Obesity, unspecified; Z68.41 Body mass index [BMI] 40.0-44.9, adult; M17.0 Bilateral primary osteoarthritis of knee; F17.200 Nicotine dependence, unspecified, uncomplicated; I10 Essential (primary) hypertension; J45.909 Unspecified asthma, uncomplicated; E78.00 Pure hypercholesterolemia, unspecified; Z79.899 Other long term (current) drug therapy
CPT/HCPCS: 29881; 87426; C9803; J7120; J2405

== ENCOUNTER → 2021-01-13 07:39 | Outpatient (CLI) | payer MEDICAID, SELFPAY ==
--- NOTE | 2021-01-13 07:41 | CT_ITS ---
History: LUNG SCREENING FOR CA Low dose CT Chest: Technique: 1.[address] imaging of the chest performed with low dose technique without contrast. Sagital and coronal reformatted images also obtained and reviewed. Findings: 3 mm nodule extends along the right major fissure likely representing an intrapulmonary lymph node. Lungs are otherwise clear. No mediastinal or hilar mass. Heart and great vessels appear normal. No osseous abnormality. IMPRESSION: 3 mm nodule on the right major fissure likely intrapulmonary lymph node. Lungs are otherwise clear. Lung RADS category 2. Annual follow-up recommended. Individualized dose optimization techniques were used for this CT. at 0939 Reported and signed by: Dashawn Rey MD Electronically Signed: Dashawn Rey MD at 9:38 EDT Tel , Service support , CT/Low Dose CT Lung Screening
[2021-01-13 08:12] LABS: Absolute Neutrophil Count 4.3 X10^3/uL (2.0-7.7); Basophil# 0.05 X10^3/uL; Basophil% 0.7 % (0-1); Eosinophil# 0.26 X10^3/uL; Eosinophils% 3.8 % (0-5); Hematocrit 37.8 % (37-47); Lymphocyte % 23.6 % (19-41); Mean Corp Hgb Conc 31.7 g/dL (32-36); Mean Corpuscular Hgb 29.3 pg (27.0-32.0); Mean Corpuscular Volume 92.4 fL (81-99); Mean Platelet Vol. 10.2 fl (6.2-12.0); Monocyte# 0.55 X10^3/uL; Monocyte% 8.1 % (0-10); NRBC Flagged by Analyzer 0 % (0-5); Neutrophil # 4.27 X10^3/uL (2.7-7.7); Neutrophil % 63.2 % (47-70); Platelet Count 227 K/mm3 (150-450); RBC Distribution Width CV 13.4 % (11.6-14.6); RBC Distribution Width SD 45.7 fl (35.1-43.9); Red Blood Count 4.09 M/mm3 (4.2-5.4); White Blood Count 6.8 K/mm3 (4.4-11.0)
[2021-01-13 08:27] LABS: Hemoglobin A1c 5.6 % (3.8-5.6)
[2021-01-13 08:47] LABS: ALB/GLOB Ratio 0.9 RATIO (0.9-2.4); AST(SGOT) 31 U/L (15-37); Alanine Aminotransfer ALT/SGPT 54 U/L (13-56); Albumin, Serum 3.4 g/dL (3.2-5.0); Alkaline Phosphatase 96 U/L (45-117); Anion Gap 4 (5-15); BUN 28 mg/dL (7-18); Calcium,Total 8.5 mg/dL (8.5-10.1); Chloride 109 mmol/L (98-107); Cholesterol 166 mg/dL (200); EST Glomerular Filtration Rate 78 mL/min (>60); Est Glom Filt Rate - Afr Amer 94 mL/min (>60); Globulin 3.8 g/dL (2.2-4.2); Glucose 106 mg/dL (74-106); High Density Lipoprotein 39 mg/dL; Potassium 4.1 mmol/L (3.5-5.1); Protein, Total 7.2 g/dL (6.4-8.2); Sodium Level 140 mmol/L (136-145); Thyroid Stim Hormone (TSH) 0.35 uIU/mL (0.358-3.74); Triglycerides 213 mg/dL; Very Low Density Lipoprotein 43 mg/dL (5-40)
== END ==
PROVIDERS: PCP Nurse Practitioner Adult Health; Referring Provider Nurse Practitioner Adult Health
DX: F17.200 Nicotine dependence, unspecified, uncomplicated (principal); R60.0 Localized edema
CPT/HCPCS: 36415; 71271; 80053; 80061; 82652; 83036; 84439; 84443; 85025

== ENCOUNTER → 2021-01-22 12:30 | Outpatient (CLI) | payer MEDICAID, SELFPAY ==
--- NOTE | 2021-01-22 12:33 | BI_ITS ---
MAMMOGRAPHY - BILATERAL SCREENING REASON FOR EXAM: Female, 60 years old. Routine annual screening examination. PERTINENT HISTORY: Grandmother with breast cancer. TECHNIQUE: Digital bilateral breast wen (3D mammographic acquisition) in the CC and MLO projections. 2-D mediolateral oblique (MLO) and craniocaudad (CC) views of both breasts were obtained. CAD: Full Field Digital Mammography with Computer Added Detection was performed. COMPARISON: Comparison is made with prior examination done 01/10/2020 and 12/01/2018. FINDINGS: Breast Composition: There are scattered areas of fibroglandular density. There are no dominant masses or suspicious calcifications. Stable small benign-appearing bilateral axillary lymph nodes. No other significant abnormalities are identified. There has been no significant change since the prior study. BI/SCRN MAMM (CAD)W/WEN BILAT IMPRESSION: Stable bilateral screening mammogram. Yearly follow-up mammogram recommended. (A) ASSESSMENT CATEGORY: BIRADS Category 2: Benign. A letter regarding these results will be sent to the patient by the facility within 30 days. Approximately 10% of breast cancers are not detected by mammography. A normal mammogram should not delay biopsy of a clinically suspicious abnormality. [id number] Electronically Signed: Maurice Butler MD at 13:25 EDT , Service support ,
--- NOTE | 2021-01-22 12:59 | BD_ITS ---
STUDY: DUAL ENERGY X-RAY ABSORPTIOMETRY / DXA REASON FOR EXAM: Female, 60 years old. M810. Patient is postmenopausal. TECHNIQUE: Bone Mineral Density (BMD) measurements of lumbar spine and bilateral hips were obtained. COMPARISON: None. FINDINGS: Lumbar Spine (L1-L4): g/cm2 (0.939) / T-score (-1.0) / Z-score (0.4) Findings are suggestive of normal bone density with a low fracture risk. Left Femur Total: g/cm2 (0.970) / T-score (0.2) / Z-score (1.2) Left Femoral Neck: g/cm2 (0.771) / T-score (-0.7) / Z-score (0.6) Right Femur Total: g/cm2 (0.908) / T-score (-0.3) / Z-score (0.7) Right Femoral Neck: g/cm2 (0.757) / T-score (-0.8) / Z-score (0.5) BD/Dexa Bone Density Study IMPRESSION: The patient is considered normal as outlined below according to World Ta Organization (WHO) criteria with a low fracture risk. Reference Information: The T-score is the number of standard deviations above or below the standard which is normal for young adults at their peak bone mineral density. The World Health Organization (WHO) interprets the T-scores as follows: Above -1 Normal bone density Between -1 and -2.5 Osteopenia Equal to / or below -2.5 Osteoporosis As a practical clinical guideline, osteopenia may be graded as follows: Mild -1 through -1.5 Moderate -1.6 through -2.0 Severe -2.1 through -2.4 The Z-score is the number of standard deviations above or below age-matched controls. A Z-score of less than -1.5 would be considered abnormal. References: 1. NIH Osteoporosis and Related Bone Diseases www osteo.org 2. International Society for Clinical Densitometry www iscd.org 3. National Osteoporosis Foundation www nof.org Electronically Signed: Maurice Butler MD at 15:48 EDT , Service support ,
== END ==
PROVIDERS: PCP Nurse Practitioner Adult Health; Referring Provider Nurse Practitioner Adult Health; Visit Provider Nurse Practitioner Adult Health
DX: Z12.31 Encounter for screening mammogram for malignant neoplasm of breast (principal); M81.0 Age-related osteoporosis without current pathological fracture
CPT/HCPCS: 77063; 77067; 77080

== ENCOUNTER → 2021-04-08 08:30 | Outpatient (CLI) | payer MEDICAID, SELFPAY ==
[2021-04-08 09:04] LABS: Absolute Lymphocyte Count 1.67 X10^3/uL (0.83-4.51); Absolute Neutrophil Count 3.6 X10^3/uL (2.0-7.7); Basophil# 0.05 X10^3/uL; Basophil% 0.8 % (0-1); Eosinophil# 0.29 X10^3/uL; Eosinophils% 4.8 % (0-5); Hematocrit 39.1 % (37-47); Hemoglobin 12.4 g/dL (12.0-15.0); Lymphocyte # 1.67 X10^3/ul (0.83-4.51); Lymphocyte % 27.7 % (19-41); Mean Corp Hgb Conc 31.7 g/dL (32-36); Mean Corpuscular Hgb 28.8 pg (27.0-32.0); Mean Corpuscular Volume 90.9 fL (81-99); Mean Platelet Vol. 10.2 fl (6.2-12.0); Monocyte# 0.41 X10^3/uL; Monocyte% 6.8 % (0-10); NRBC Flagged by Analyzer 0 % (0-5); Neutrophil # 3.59 X10^3/uL (2.7-7.7); Neutrophil % 59.6 % (47-70); Platelet Count 222 K/mm3 (150-450); RBC Distribution Width CV 13.7 % (11.6-14.6); RBC Distribution Width SD 46.1 fl (35.1-43.9)
[2021-04-08 09:33] LABS: Vitamin B12 347 pg/mL (211-911)
[2021-04-08 09:35] LABS: Anion Gap 7 (5-15); BUN 30 mg/dL (7-18); BUN/Creat Ratio 34.1 RATIO (10-20); Calcium,Total 8.9 mg/dL (8.5-10.1); Chloride 107 mmol/L (98-107); Creatinine, Serum 0.88 mg/dL (0.55-1.02); EST Glomerular Filtration Rate 69 mL/min (>60); Est Glom Filt Rate - Afr Amer 84 mL/min (>60); Glucose 97 mg/dL (74-106); Iron 83 ug/dL (50-170); Iron Binding Capacity,Total 330 ug/dL (250-450); PERCENT IRON SATURATION 25.2 % (15.0-55.0); Potassium 4.4 mmol/L (3.5-5.1); Sodium Level 141 mmol/L (136-145)
== END ==
PROVIDERS: Referring Provider Nurse Practitioner Adult Health; Visit Provider Nurse Practitioner Adult Health
DX: D64.9 Anemia, unspecified (principal)
CPT/HCPCS: 36415; 80048; 82607; 82746; 83540; 83550; 85025

== ENCOUNTER → 2021-04-30 08:57 | Outpatient (CLI) | payer MEDICAID, SELFPAY ==
[2021-04-30 10:33] LABS: Anion Gap 4 (5-15); BUN 24 mg/dL (7-18); BUN/Creat Ratio 27.1 RATIO (10-20); Calcium,Total 8.7 mg/dL (8.5-10.1); Chloride 112 mmol/L (98-107); Creatinine, Serum 0.88 mg/dL (0.55-1.02); EST Glomerular Filtration Rate 69 mL/min (>60); Est Glom Filt Rate - Afr Amer 84 mL/min (>60); Glucose 152 mg/dL (74-106); Sodium Level 142 mmol/L (136-145)
== END ==
PROVIDERS: Referring Provider Nurse Practitioner Adult Health; Visit Provider Nurse Practitioner Adult Health
DX: I10 Essential (primary) hypertension (principal)
CPT/HCPCS: 36415; 80048

== ENCOUNTER → 2021-05-13 08:56 | Outpatient (CLI) | payer MEDICAID, SELFPAY ==
[2021-05-13 10:42] LABS: Thyroid Stim Hormone (TSH) 0.59 uIU/mL (0.358-3.74)
--- NOTE | 2021-05-14 10:08 | PFT ---
INTRODUCTION: The patient is a 61-year-old female that presents for pulmonary function studies secondary to a diagnosis of shortness of breath. Respiratory therapy reported good patient effort. Bronchodilators were used during testing. INTERPRETATION: Forced expiration spirometry demonstrates the presence of a mild large airways obstructive ventilatory defect. There was a significant response to aerosolized bronchodilators. Spirograms are of good quality and plateau gradually indicating slow emptying of the lungs. Body plethysmography was performed and revealed an elevated RV to 159% of predicted, indicative of underlying air trapping. Diffusing capacity by single breath CO is within normal limits. IMPRESSION: Partially reversible mild large airways obstructive ventilatory defect with associated air trapping and preserved diffusing capacity.
== END ==
PROVIDERS: Visit Provider Nurse Practitioner Adult Health
DX: R06.02 Shortness of breath (principal); I10 Essential (primary) hypertension; R07.9 Chest pain, unspecified
CPT/HCPCS: 36415; 84443; 94060; 94726; 94729

== ENCOUNTER 2021-07-24 08:05 | Day surgery (SDC) | payer MEDICAID, SELFPAY ==
[2021-07-24 08:44] VITALS: BP 155/78; PULSE 75; RESP 16; TEMP 37.1; O2SAT 100; BMI 42.5
[2021-07-24] MEDS: Lactated Ringers 1,000 ML 15 ML IV (08:53)
--- NOTE | 2021-07-24 09:18 | HP.PCM_ITS ---
HPI - General HPI Narrative OCHOA WHEELER, is a 61 F who presents for surveillance colonoscopy. Patient reports her last colonoscopy was about 4 years ago and multiple polyps were removed. She was recommended to have a repeat. She denies any blood in her stool or abdominal pain or family history of colon cancer. [facility] Medical History (Updated 07/24/21 @ 09:[address] Monico Grullon MD) Arthritis Asthma Back pain COPD (chronic obstructive pulmonary disease) High cholesterol History of edema History of pain when walking HTN (hypertension) Leg cramps Seasonal allergies Shortness of breath on exertion Smoker Wears glasses Home Medications albuterol sulfate 1 - 2 puff INHALATION Q4H PRN PRN #1 inhaler 05/04/16 [Rx Last Taken 07/24/21 05:30] cholecalciferol (vitamin D3) 50,000 unit PO MO 04/18/17 [History Last Taken 12/08/20] montelukast 10 mg PO DAILY 04/18/17 [History Last Taken 12/08/20] atorvastatin 10 mg tablet 10 mg PO DAILY tab 06/20/20 [History Last Taken 12/08/20] albuterol sulfate 2.5 mg INHALATION Q4H PRN PRN 12/05/20 [History Last Taken 12/08/20] diclofenac sodium 75 mg PO BID 12/05/20 [History Last Taken 12/08/20] fluticasone propion-salmeterol 1 inh INHALATION BID 12/05/20 [History Last Taken 12/08/20] losartan 50 mg PO DAILY 07/17/21 [History Last Taken 07/24/21 05:30] Allergy/AdvReac Type Severity Reaction Status Date / Time bacitracin Allergy Swelling Verified 07/24/21 08:43 Penicillins Allergy Shortness Verified 07/24/21 08:43 of breath Sulfa (Sulfonamide Allergy Hives Verified 07/24/21 08:43 Antibiotics) Surgical History (Updated 07/17/21 @ 11:38 by Julia Garcia) History of arthroscopy of right knee Hx of cholecystectomy Hx of colonoscopy with polypectomy Social History Smoking Status: Current every day smoker tobacco type: cigarettes Past Medical/Surgical History Planned Operation Planned Operative Procedure/s: colonoscopy S.O.S: No Previous Hospitalizations/Surgeries HX Hospitalizations: No HX of Surgeries: GALLBLADDER COLONOSCOPY Any Problems With Anesthesia: No You/Your Family Experience Fever (Hyperthermia) With Anes: No Cholinesterase deficiency: No Cardiovascular Hx Chest Pain within Last 2 months: No Hx of Irregular Heartbeat and/or Afib: Yes (MURMUR) Hx Heart Attack: No Hx Congestive Heart Failure: No Hx Rheumatic Fever: No Hx Hypertension: Yes (controlled with med) Hx Internal Defibrillator: No Hx Pacemaker: No Hx Cardiac Catheterization: No Hx Cardiac Surgery/Stents/Etc.: No Hx Stress Test: No Hx Pain in Legs when Walking/Leg Cramps: Yes Respiratory Chronic Cough: No HX of Shortness of Breath: No Hoarseness: No Hx Chronic Obstructive Pulmonary Disease (COPD): No Hx Asthma: Yes Hx Emphysema: No Hx Sleep Apnea: No Hx Respiratory Tract Infection/Cold (presently): No Do You Snore Loudly (louder than talking or can be heard): No Do You Often Feel Tired/ Fatigued/ Sleepy Dring Daytime?: No Has Anyone Observed You Stop Breathing During Sleep?: No Result (for STOP score): Negative Hx Smoking: Yes Smoking Status: Current every day smoker Gastrointestinal Hx Gastroesophageal Reflux: Yes Controlled With Meds: Yes Hx Gastrointestinal Disorders: No Hx Gastrointestinal Bleed: No Hx Ulcer: Yes Hx Hiatal Hernia: No Difficulty Chewing/Swallowing: No Special diet followed at home: No Hx Unplanned Weight Loss of 20#: No HX Unplanned Weight Gain of 20#: No (10 LBS 3 MONTHS) Neurological Hx Seizures: No HX Syncope/Blackout Spells/Unconsciousness: No Hx Transient Ischemic Attacks (TIA): No Hx Multiple Sclerosis: No Hx Parkinson's Disease: No Hx Head/Neck Injury: No Hx Headaches: Yes Hx Back Injury/Pain: Yes Recent Onset of Speech Difficulty: No Restless Legs: No Does patient have nerve stimulator: No Blood Disorder Hx Leukemia: No Bleeding Tendencies: No Hx Deep Vein Thrombosis: No Hx High Cholesterol: No Blood Transmitted Disease: No Hx Hepatitis: No Hx Cirrhosis: No Hx Anemia: No Hx Blood Disorders: No Reproduction : No Is Patient Lactating: No Hx Hysterectomy: No Hx Tubal Ligation: No Are You Post Menopause: Yes Genitourinary Hx Renal Disease: No Musculoskeletal Hx Arthritis: Yes Hx Rheumatoid Arthritis: No Hx Gout: No Recent Onset of an Orthopedic Problem: No Endocrine Hx Diabetes: No Thyroid Disease: No Hx Steroid Therapy: No Psycho/Social Hx Substance Use: No Hx Alcohol Use: No Hx Anxiety: No Hx Depression: No Mental Illness: No Hx Dementia: No Miscellaneous Hx Cancer: No Recent Exposure to Contagious Disease: No Hx of C-Diff: No Any Loose Teeth: No Allergies bacitracin Allergy (Verified 07/24/21 08:43) Swelling Penicillins Allergy (Verified 07/24/21 08:43) Shortness of breath Sulfa (Sulfonamide Antibiotics) Allergy (Verified 07/24/21 08:43) Hives Discharge Is Pt Admitted From a Custodial, or a Nursing Home: No Who Could Help: family After D/C, Where Do you Plan to Go: Return Home Vital Signs Vital Signs Vital Signs: 07/24/21 08:44 Temperature 98.8 F Temperature Source Temporal Pulse Rate 75 Respiratory Rate 16 Respiratory Pattern Normal Blood Pressure 155/78 H Blood Pressure Mean 103 Blood Pressure Source Monitor Blood Pressure Position Semi-Fowlers Blood Pressure Location Right Arm Pulse Ox 100 Oxygen Delivery Method Room Air Weight Weight: 224 lb 13.944 oz Body Mass Index (BMI) 42.5 Physical Exam Const alert and oriented x3 Resp normal respiratory effort and normal air movement Cardio regular rate and regular rhythm GI soft to palpation, non-tender and non-distended Assessment & Plan Assessment/Plan (1) History of colon polyps: PLAN: I explained endoscopy in detail to the patient. I explained the risks including but not limited to stroke or heart attack with anesthesia, perf oration of the GI tract, bleeding, infection. I explained that any of these could necessitate further emergency surgery. The patient understands and all questions were answered sufficiently. The patient wishes to proceed with procedure. Monico Grullon MD Pager: [facility] [address] [place] [address], [address] [place] [address] Office: Surgery Risks - Colonoscopy Risks Include but are not Limited To: Risks include but are not limited to: Bleeding, perforation requiring further surgery, inability to complete colonoscopy requiring barium enema.
[2021-07-24 09:55] VITALS: BP 117/63; BP 155/78; PULSE 78; RESP 16; TEMP 36.8; O2SAT 97
--- NOTE | 2021-07-24 09:55 | OP.COLON_ITS ---
Patient Name: Annabelle Gurrola Procedure Date: 07/24/2021 9:25 AM Date of : 1960 Age: 61 Procedure: Colonoscopy Indications: High risk colon cancer surveillance: Personal history of colonic polyps Providers: Monico Grullon MD Referring MD: Monico Grullon MD Medicines: Monitored Anesthesia Care Patient Profile: This is a 61 year old female. Refer to note in patient chart for documentation of history and physical. Last Colonoscopy: more than 3 years ago. Complications: No immediate complications. Procedure: Pre-Anesthesia Assessment: - Prior to the procedure, a History and Physical was performed, and patient medications and allergies were reviewed. The patient's tolerance of previous anesthesia was also reviewed. The risks and benefits of the procedure and the sedation options and risks were discussed with the patient. All questions were answered, and informed consent was obtained. Prior Anticoagulants: The patient has taken no previous anticoagulant or antiplatelet agents. After reviewing the risks and benefits, the patient was deemed in satisfactory condition to undergo the procedure. After I obtained informed consent, the scope was passed under direct vision. Throughout the procedure, the patient's blood pressure, pulse, and oxygen saturations were monitored continuously. The Colonoscope was introduced through the anus and advanced to the cecum, identified by appendiceal orifice and ileocecal valve. The colonoscopy was performed without difficulty. The patient tolerated the procedure well. The quality of the bowel preparation was good. Scope In: 9:40:23 AM Scope Withdrawal Time 0 hours 6 minutes 44 seconds Scope Out: 9:53:08 AM Total Procedure Duration Time 0 hours 12 minutes 45 seconds Findings: The entire examined colon appeared normal on direct and retroflexion views. Impression: - The entire examined colon is normal on direct and retroflexion views. - No specimens collected. Recommendation: - Discharge patient to home. - Resume previous diet. - Continue present medications. - Repeat colonoscopy in 10 years for screening purposes. Procedure Code(s): --- Professional --- 95630, Colonoscopy, flexible; diagnostic, including collection of specimen(s) by brushing or washing, when performed (separate procedure) Diagnosis Code(s): --- Professional --- Z86.010, Personal history of colonic polyps CPT copyright 2017 [employer]. All rights reserved. The codes documented in this report are preliminary and upon nanny caregiver review may be revised to meet current compliance requirements. Monico Grullon MD 07/24/2021 9:55:03 AM This report has been signed electronically. Number of Addenda: 0 Note Initiated On: 07/24/2021 9:25 AM
--- NOTE | 2021-07-24 09:56 | OP.CCLET_ITS ---
07/24/2021 Kaylah Familia [facility] Re : Colonoscopy procedure for Annabelle Gurrola [facility] This procedure was performed on Saturday, July 24, 2021. My impressions and recommendations are as follows: Impressions : - The entire examined colon is normal on direct and retroflexion views. - No specimens collected. Recommendations : - Discharge patient to home. - Resume previous diet. - Continue present medications. - Repeat colonoscopy in 10 years for screening purposes. My findings are described in the full procedure note, which is enclosed. If I can be of further assistance, please feel free to contact me at Doctor phone number(s): , Work: . Sincerely, Monico Grullon MD 07/24/2021 9:55:03 AM This report has been signed electronically.
[2021-07-24 10:00] VITALS: BP 125/66; BP 155/78; PULSE 67; RESP 16; O2SAT 99
[2021-07-24 10:05] VITALS: BP 123/65; BP 155/78; PULSE 69; RESP 16; O2SAT 98
[2021-07-24 10:10] VITALS: BP 129/74; BP 155/78; PULSE 70; RESP 16; TEMP 36.3; O2SAT 98
[2021-07-24 10:50] VITALS: BP 155/78
== END 2021-07-24 23:59 | disposition home or self-care (01) ==
LOC: EN 08:05 → AC 08:05
PROVIDERS: Referring Provider Surgery; Visit Provider Surgery
PROC: 0DJD8ZZ Inspection of Lower Intestinal Tract, Via Natural or Artificial Opening Endoscopic (ICD-10-PCS; CPT 45378; principal; 2021-07-24 09:25)
DX: Z12.11 Encounter for screening for malignant neoplasm of colon (principal); J44.9 Chronic obstructive pulmonary disease, unspecified; I10 Essential (primary) hypertension; F17.210 Nicotine dependence, cigarettes, uncomplicated; E78.00 Pure hypercholesterolemia, unspecified; K21.9 Gastro-esophageal reflux disease without esophagitis; M19.90 Unspecified osteoarthritis, unspecified site; Z86.010 Personal history of colon polyps; Z79.899 Other long term (current) drug therapy
CPT/HCPCS: 45378; 87426; C9803; J7120; J2405

== ENCOUNTER → 2021-10-08 | Outpatient (CLI) | payer MEDICAID, SELFPAY ==
--- NOTE | 2021-10-08 12:29 | RAD_ITS ---
STUDY: X-RAY - LEFT HAND REASON FOR EXAM: Female, 61 years old. SPRAIN OF INTERPHALANGEAL JOINT OF LEFT INDEX FINGER, INIT TECHNIQUE: 2 view(s) of the hand. COMPARISON: None. FINDINGS: Normal radiocarpal articulation. Normal distal radioulnar joint. Normal visualized carpal bones. Normal carpal articulations Normal carpometacarpal articulation of the thumb. Normal second through fifth carpometacarpal joints. Normal metacarpi. Normal metacarpophalangeal joint of the thumb. Normal interphalangeal joint of the thumb. Normal proximal and distal phalanges of the thumb. Normal metacarpophalangeal joints of the second through fifth fingers. Normal proximal and distal interphalangeal joints of the second through fifth fingers. Normal phalanges of the second through fifth fingers. The soft tissue structures are unremarkable. RAD/Hand 2 Views IMPRESSION: No demonstrated fracture or erosive process. Electronically Signed: Fermin Pollard MD ([place]) at 16:25 EDT ,
== END | disposition home or self-care (01) ==
LOC: RAD 12:27
PROVIDERS: Visit Provider Nurse Practitioner Adult Health
DX: S63.631A Sprain of interphalangeal joint of left index finger, initial encounter (principal)
CPT/HCPCS: 73120

== ENCOUNTER → 2022-01-13 | Outpatient (CLI) | payer MEDICAID, SELFPAY ==
[2022-01-13 11:14] LABS: Absolute Lymphocyte Count 1.73 X10^3/uL (0.83-4.51); Absolute Neutrophil Count 4.3 X10^3/uL (2.0-7.7); Basophil# 0.06 X10^3/uL; Basophil% 0.8 % (0-1); Eosinophil# 0.42 X10^3/uL; Eosinophils% 5.9 % (0-5); Hematocrit 40.7 % (37-47); Hemoglobin 13.2 g/dL (12.0-15.0); Lymphocyte # 1.73 X10^3/ul (0.83-4.51); Lymphocyte % 24.2 % (19-41); Mean Corp Hgb Conc 32.4 g/dL (32-36); Mean Corpuscular Hgb 29.4 pg (27.0-32.0); Mean Corpuscular Volume 90.6 fL (81-99); Mean Platelet Vol. 10.5 fl (6.2-12.0); Monocyte# 0.58 X10^3/uL; Monocyte% 8.1 % (0-10); NRBC Flagged by Analyzer 0 % (0-5); Neutrophil # 4.32 X10^3/uL (2.7-7.7); Neutrophil % 60.6 % (47-70); Platelet Count 240 K/mm3 (150-450); RBC Distribution Width CV 13.9 % (11.6-14.6); RBC Distribution Width SD 46.6 fl (35.1-43.9); Red Blood Count 4.49 M/mm3 (4.2-5.4); White Blood Count 7.1 K/mm3 (4.4-11.0)
[2022-01-13 11:54] LABS: ALB/GLOB Ratio 0.9 RATIO (0.9-2.4); AST(SGOT) 19 U/L (15-37); Alanine Aminotransfer ALT/SGPT 34 U/L (13-56); Albumin, Serum 3.3 g/dL (3.2-5.0); Alkaline Phosphatase 97 U/L (45-117); Anion Gap 4 (5-15); BUN 14 mg/dL (7-18); BUN/Creat Ratio 17.8 RATIO (10-20); Calcium,Total 8.8 mg/dL (8.5-10.1); Chloride 108 mmol/L (98-107); Cholesterol 155 mg/dL (200); Creatinine, Serum 0.78 mg/dL (0.55-1.02); EST Glomerular Filtration Rate 79 mL/min (>60); Est Glom Filt Rate - Afr Amer 96 mL/min (>60); Globulin 3.8 g/dL (2.2-4.2); Glucose 88 mg/dL (74-106); High Density Lipoprotein 41 mg/dL; Potassium 4.2 mmol/L (3.5-5.1); Protein, Total 7.1 g/dL (6.4-8.2); Sodium Level 141 mmol/L (136-145); Thyroid Stim Hormone (TSH) 0.51 uIU/mL (0.358-3.74); Triglycerides 209 mg/dL; Very Low Density Lipoprotein 42 mg/dL (5-40)
[2022-01-13 11:56] LABS: Hemoglobin A1c 5.7 % (3.8-5.6)
== END | disposition home or self-care (01) ==
PROVIDERS: Referring Provider Nurse Practitioner Adult Health; Visit Provider Nurse Practitioner Adult Health
DX: I10 Essential (primary) hypertension (principal)
CPT/HCPCS: 36415; 80053; 80061; 83036; 84443; 85025

== ENCOUNTER → 2022-01-16 | Outpatient (CLI) | payer MEDICAID, SELFPAY ==
--- NOTE | 2022-01-16 07:08 | CT_ITS ---
EXAM: CT CHEST, LUNG CANCER SCREENING WITHOUT INTRAVENOUS CONTRAST CLINICAL INDICATION: COPD TECHNIQUE: Helically acquired images were obtained of the chest without intravenous contrast using low dose (LDCT) lung cancer screening protocol. This CT exam was performed using one or more of the following dose reduction techniques: automated exposure control, adjustment of the mA and/or kV according to patient size, and/or use of iterative reconstruction technique. This report was created using [employer] report generation technology. COMPARISON: CT Lung Cancer Screening dated january 13 2021 FINDINGS: LUNGS AND PLEURAL SPACES: 5 mm nodule within the right upper lobe noted on image 53. 6 mm nodule noted within the anterior basal segment of the right lower lobe on image 156. Oval-shaped 3 mm pleural-based nodules within the left hemithorax along the major fissure consistent with intrapulmonary lymph nodes. Lungs are otherwise clear. No pneumothorax. HEART: Normal. Heart size is normal. No pericardial effusion. No significant coronary artery calcifications. MEDIASTINUM: Multiple subcentimeter mediastinal lymph nodes are noted which may be reactive in nature. Esophagus is unremarkable. No hiatal hernia. THYROID: Normal. No thyroid lesions. BONES/JOINTS: Normal. No suspicious lytic or blastic abnormality. VASCULATURE: 3.6 cm diameter the pulmonary artery raises the possibility of pulmonary a hypertension. Thoracic aorta is non-dilated. LYMPH NODES: See above. CT/Low Dose CT Lung Screening IMPRESSION: 6 mm right lower lobe and 5 mm right upper lobe pulmonary nodules. ACR Lung CT Screening Reporting T Data System (Lung-RADS) score: 3 - Probably Benign. Recommend low-dose CT (LDCT) in 6 months. Electronically Signed: Dashawn Rey MD at 10:04 EDT ,
== END | disposition home or self-care (01) ==
LOC: CT 07:06
PROVIDERS: Referring Provider Nurse Practitioner Adult Health; Visit Provider Nurse Practitioner Adult Health
DX: J44.9 Chronic obstructive pulmonary disease, unspecified (principal)
CPT/HCPCS: 71271

== ENCOUNTER → 2022-01-28 | Outpatient (CLI) | payer MEDICAID, SELFPAY ==
--- NOTE | 2022-01-28 07:47 | BI_ITS ---
MAMMOGRAPHY - BILATERAL SCREENING REASON FOR EXAM: Female, 61 years old. Routine annual screening examination. PERTINENT HISTORY: Grandmother with breast cancer. TECHNIQUE: Digital bilateral breast wen (3D mammographic acquisition) in the CC and MLO projections. 2-D mediolateral oblique (MLO) and craniocaudad (CC) views of both breasts were obtained. CAD: Full Field Digital Mammography with Computer Added Detection was performed. COMPARISON: Comparison is made with prior study 01/22/2021 and 01/10/2020. FINDINGS: Breast Composition: There are scattered areas of fibroglandular density. There are no dominant masses or suspicious calcifications. Stable small benign-appearing bilateral axillary lymph nodes. No other significant abnormalities are identified. There has been no significant change since the prior study. BI/SCRN MAMM (CAD)W/WEN BILAT IMPRESSION: Stable bilateral screening mammogram. Yearly follow-up mammogram recommended. (A) ASSESSMENT CATEGORY: BIRADS Category 2: Benign. A letter regarding these results will be sent to the patient by the facility within 30 days. Approximately 10% of breast cancers are not detected by mammography. A normal mammogram should not delay biopsy of a clinically suspicious abnormality. [id number] Electronically Signed: Maurice Butler MD at 10:03 EDT ,
== END | disposition home or self-care (01) ==
LOC: OPBI 07:44
PROVIDERS: Visit Provider Nurse Practitioner Adult Health
DX: Z12.31 Encounter for screening mammogram for malignant neoplasm of breast (principal)
CPT/HCPCS: 77063; 77067

== ENCOUNTER 2022-08-27 22:04 | Emergency (ER) | payer MEDICAID, SELFPAY ==
[2022-08-27 22:05] VITALS: BP 159/75; PULSE 84; RESP 18; TEMP 35.9; O2SAT 97; BMI 90.9
--- NOTE | 2022-08-27 23:59 | EX.ED.DYSGE1 ---
HPI History of Present Illness Chief Complaint: Cold Sx Narrative Narrative: Patient is a 62-year-old female with past medical history of asthma who presents with congestion and cough. Patient states that her older son has been sick recently and now she has been having congestion drainage and cough for about 7 days. She states she is concerned that it will move to her lungs and with this presents for evaluation. [facility] Medical History Arthritis Asthma Back pain COPD (chronic obstructive pulmonary disease) High cholesterol History of edema History of pain when walking HTN (hypertension) Leg cramps Seasonal allergies Shortness of breath on exertion Smoker Wears glasses Home Medications albuterol sulfate 90 mcg/actuation aerosol inhaler 1 - 2 puff inhalation Q4H PRN PRN Wheezing ##1 05/04/16 [Rx Last Taken 07/24/21 05:30] cholecalciferol (vitamin D3) 1,250 mcg (50,000 unit) capsule 50,000 unit PO MO 04/18/17 [History Last Taken 12/08/20] montelukast 10 mg tablet 10 mg PO DAILY 04/18/17 [History Last Taken 12/08/20] atorvastatin 10 mg tablet 10 mg PO DAILY 06/20/20 [History Last Taken 12/08/20] albuterol sulfate 2.5 mg/3 mL (0.083 %) solution for nebulization 2.5 mg inhalation Q4H PRN PRN sob 12/05/20 [History Last Taken 12/08/20] diclofenac sodium 75 mg tablet,delayed release 75 mg PO BID 12/05/20 [History Last Taken 12/08/20] fluticasone 250 mcg-salmeterol 50 mcg/dose blistr powdr for inhalation 1 inh inhalation BID 12/05/20 [History Last Taken 12/08/20] losartan 50 mg tablet 50 mg PO DAILY 07/17/21 [History Last Taken 07/24/21 05:30] azelastine 137 mcg (0.1 %) nasal spray aerosol 2 spray intranasal BID #30 mL 08/28/22 [Rx Last Taken Unknown] azithromycin 250 mg tablet (Zithromax Z-Mayco) See Rx Instructions PO .COMPLEX #6 tabs 08/28/22 [Rx Last Taken Unknown] prednisone 20 mg tablet 40 mg PO DAILY 5 days #10 tabs 08/28/22 [Rx Last Taken Unknown] promethazine 6.25 mg-codeine 10 mg/5 mL syrup 5 ml PO 4X/DAY PRN PRN cough 7 days #140 mL 08/28/22 [Rx Last Taken Unknown] Allergy/AdvReac Type Severity Reaction Status Date / Time bacitracin Allergy Swelling Verified 08/27/22 22:05 Penicillins Allergy Shortness Verified 08/27/22 22:05 of breath Sulfa (Sulfonamide Allergy Hives Verified 08/27/22 22:05 Antibiotics) Surgical History History of arthroscopy of right knee Hx of cholecystectomy Hx of colonoscopy with polypectomy Social History Smoking Status: Current every day smoker tobacco type: cigarettes ROS ROS ED Constitutional Constitutional ED: Denies chills or fever(s) ENT ENT ED: Reports rhinorrhea and sore throat Cardiovascular Cardiovascular: Denies chest pain Respiratory/Chest Respiratory/Chest: Reports cough and dyspnea Gastrointestinal Gastrointestinal: Denies abdominal pain, diarrhea, nausea or vomiting Genitourinary Genitourinary ED: Denies dysuria Musculoskeletal Musculoskeletal: Reports myalgias Integumentary Denies rash Neurologic Neurologic: Denies headache(s) Hematologic/Lymphatic Hematologic/Lymphatic: Denies easy bleeding or easy bruising EXAM Physical Exam Const Vital Signs: 08/27/22 22:05 Temperature 96.7 F L Temperature Source Temporal Pulse Rate 84 Respiratory Rate 18 Blood Pressure 159/75 H Blood Pressure Mean 103 Pulse Ox 97 Oxygen Delivery Method Room Air Positive well nourished and well developed General Appearance ED: well developed HEENT Reports moist mucous membranes HEENT Narrative: Nasal mucosa is hyperemic and boggy there is enlargement of the inferior nasal turbinates. There is cobblestoning the posterior pharynx consistent with sinus drainage without airway edema or compromise Eyes PERRL and EOMs intact bilaterally Neck supple Neck Narrative: Positive anterior cervical lymphadenopathy noted Chest Wall palpation of chest normal Resp normal respiratory effort Resp Narrative: Breath sounds are diminished throughout with faint expiratory wheeze but no nasal flaring retractions tachypnea or accessory muscle use Cardio regular rate and regular rhythm Extremity normal to inspection Extremity Narrative: No asymmetric edema no pitting edema negative Homans' sign bilaterally Neuro oriented x3 and CN's II-XII intact bilaterally Sensorium / Orientation: alert Psych mental status grossly normal Skin no rashes or lesions noted MDM MDM MDM Narrative Medical decision making narrative: Patient presented to the ER in no acute respiratory distress satting 97% on room air. She reported congestion drainage and cough after being exposed to her son indicating she has a viral upper respiratory infection. However differential also includes pneumonia versus asthmatic bronchitis. We discussed possible chest x-ray but as oxygen saturation is normal she does not have asymmetric breath sounds or loss of breath sounds that patient did not want to undergo imaging studies. At this time should be given symptomatic care for the URI but given antibiotics secondary to asthma history to hold onto intake if there is no improvement symptomatic treatment. The plan of care was discussed with the patient and she is agreeable to it. History & Record Review Discussion w/independent historian: Patient Discharge Plan Triage Chief Complaint: Cold Sx ED Provider: Jeff Garcia Dx/Rx/DC Orders Clinical Impression: Upper respiratory tract infection, Asthma Instructions: ED URI, Viral W/ Wheezing (Adult) Prescriptions: New prednisone 20 mg tablet 40 mg PO DAILY 5 Days Qty: 10 0RF azelastine 137 mcg (0.1 %) aerosol,spray 2 spray intranasal BID Qty: 30 0RF Rx Instructions: administer into each nostril promethazine-codeine 6.25-10 mg/5 mL syrup 5 ml PO 4X/DAY PRN PRN (Reason: cough) 7 Days Qty: 140 0RF azithromycin [Zithromax Z-Mayco] 250 mg tablet See Rx Instructions .ROUTE .COMPLEX Qty: 6 0RF Rx Instructions: For 250 mg dose pack: take 500 mg today (day 1), then 250 mg for 4 days (days 2-5) No Action atorvastatin 10 mg tablet 10 mg PO DAILY Label Comments: TAKE 1 TABLET BY MOUTH DAILY AT BEDTIME albuterol sulfate 1 INHALER inhaler 1 - 2 puff INHALATION Q4H PRN PRN (Reason: Wheezing) Qty: 1 0RF montelukast 10 MG tablet 10 mg PO DAILY cholecalciferol (vitamin D3) 50,000 UNIT capsule 50,000 unit PO MO fluticasone propion-salmeterol 250-50 mcg/dose Blister With Device 1 inh INHALATION BID diclofenac sodium 75 mg Tablet,Delayed Release (Dr/Ec) 75 mg PO BID albuterol sulfate 2.5 MG/3 ML solution for nebulization 2.5 mg inhalation Q4H PRN PRN (Reason: sob) Rx Instructions: Use q4 hours and PRN for wheezing losartan 50 mg tablet 50 mg PO DAILY Label Comments: TAKE 1 TABLET BY MOUTH EVERY DAY Primary Care Provider: [facility] Kaylah Baron Referrals: [facility] Kaylah Baron [Primary Care Provider] - Activity Restrictions/Additional Instructions: Your symptoms are most consistent with a viral upper respiratory infection which will take 18 to 21 days to resolve. Use the medication as directed to control your symptoms and if there is no improvement in the next 7 to 10 days then take the antibiotic. Please return to the ER should you have any further concerns Disposition Disposition: Home, Self Care Discharge Date/Time: 08/28/22 00:11
== END 2022-08-28 00:11 | disposition home or self-care (01) ==
PROVIDERS: Emergency Provider Emergency Medicine; Visit Provider Emergency Medicine
DX: J06.9 Acute upper respiratory infection, unspecified (principal); J45.909 Unspecified asthma, uncomplicated; F17.210 Nicotine dependence, cigarettes, uncomplicated
CPT/HCPCS: 99282

== ENCOUNTER → 2023-01-25 | Outpatient (CLI) | payer MEDICAID, SELFPAY ==
--- NOTE | 2023-01-25 09:39 | BD_ITS ---
STUDY: DUAL ENERGY X-RAY ABSORPTIOMETRY / DXA REASON FOR EXAM: Female, 62 years old. 733.00OsteoporosisBONE DENSITY REASON FOR EXAM TECHNIQUE: Bone Mineral Density (BMD) measurements of lumbar spine and bilateral hips were obtained. COMPARISON: Comparison is made with prior study January 22, 2021. FINDINGS: Lumbar Spine (L1-L4): g/cm2 (1.056) / T-score (0.1) / Z-score (1.7) Findings are suggestive of normal bone density with a low fracture risk. Left Femur Total: g/cm2 (0.930) / T-score (-0.1) / Z-score (1.0) Left Femoral Neck: g/cm2 (0.703) / T-score (-1.3) / Z-score (0.1) Right Femur Total: g/cm2 (0.865) / T-score (-0.6) / Z-score (0.5) Right Femoral Neck: g/cm2 (0.684) / T-score (-1.5) / Z-score (-0.1) The T-Scores on the most recent prior examination were: Lumbar Spine (L1-L4): There has been improvement of bone density since the previous examination. Left Femur Total: which represents a worsening of 4.1%. Right Femur Total: which represents a worsening of 4.8%. BD/Dexa Bone Density Study IMPRESSION: The patient is considered osteopenic as outlined below according to World Ta Organization (WHO) criteria with a low fracture risk. There has been worsening of bone density since the previous examination. Reference Information: The T-score is the number of standard deviations above or below the standard which is normal for young adults at their peak bone mineral density. The World Health Organization (WHO) interprets the T-scores as follows: Above -1 Normal bone density Between -1 and -2.5 Osteopenia Equal to / or below -2.5 Osteoporosis As a practical clinical guideline, osteopenia may be graded as follows: Mild -1 through -1.5 Moderate -1.6 through -2.0 Severe -2.1 through -2.4 The Z-score is the number of standard deviations above or below age-matched controls. A Z-score of less than -1.5 would be considered abnormal. References: 1. NIH Osteoporosis and Related Bone Diseases www osteo.org 2. International Society for Clinical Densitometry www iscd.org 3. National Osteoporosis Foundation www nof.org Electronically Signed: Maurice Butler MD at 12:54 EDT ,
== END | disposition home or self-care (01) ==
LOC: OPBD 09:15
PROVIDERS: Referring Provider Nurse Practitioner Adult Health; Visit Provider Nurse Practitioner Adult Health
DX: M81.0 Age-related osteoporosis without current pathological fracture (principal)
CPT/HCPCS: 77080

== ENCOUNTER → 2023-02-25 | Outpatient (CLI) | payer MEDICAID, SELFPAY ==
--- NOTE | 2023-02-25 15:07 | CT_ITS ---
HISTORY: Nicotine dependence. TECHNIQUE: Helically acquired images were obtained of the chest without contrast. A radiation dose optimization technique was used for this scan. 819 images. COMPARISON: 01/16/2022, 01/13/2021. FINDINGS: LARGE AIRWAYS: Patent. LUNGS: 3 mm right upper lobe pleural-based nodule, previously 5 mm. 2 mm right lower lobe nodule adjacent to the major fissure, previously 6 mm. Mild scarring along the left fissure noted. PLEURA: No pneumothorax or significant pleural effusion. HEART/PERICARDIUM: Heart within normal limits in size. No significant coronary artery calcification. No pericardial effusion. VESSELS: Thoracic aorta nondilated. Mild atherosclerosis. MEDIASTINUM/JIMMIE: No pathologically enlarged adenopathy. UPPER ABDOMEN: Cholecystectomy. BONES: Intact. CT/Low Dose CT Lung Screening IMPRESSION: Small right upper and lower lobe pulmonary nodules, not increased in size from prior. Lung-RADS category 2: Continue annual screening with low dose CT. Electronically Signed: Dania Edgar MD at 14:10 EDT ,
== END | disposition home or self-care (01) ==
LOC: CT 15:06
PROVIDERS: Referring Provider Nurse Practitioner Family; Visit Provider Nurse Practitioner Family
DX: Z12.2 Encounter for screening for malignant neoplasm of respiratory organs (principal); F17.200 Nicotine dependence, unspecified, uncomplicated
CPT/HCPCS: 71271

== ENCOUNTER → 2023-03-17 | Outpatient (CLI) | payer MEDICAID, SELFPAY ==
--- NOTE | 2023-03-17 13:23 | MRI_ITS ---
STUDY: MRI RIGHT MIDFOOT REASON FOR EXAM: Female, 62 years old. Osteoarthritis right midfoot, lump marked with capsules. TECHNIQUE: Standardized fat and water weighted pulse sequences were obtained in all 3 orthogonal planes. COMPARISON: None. FINDINGS: Normal talonavicular articulation. Normal calcaneocuboid articulation. Normal intercuneiform articulations. Skin markers were placed along the dorsal aspect of the midfoot at the site of clinical concern. There is degenerative arthrosis at the navicular-intermediate cuneiform joint and second tarsometatarsal joint with mild dorsal osteophyte formation (sagittal T1 series 7 images 15-17). Normal first, third, fourth, and fifth tarsometatarsal articulations. Normal Lisfranc ligament. Intact first through fifth metatarsi. There is no demonstrated fracture of the metatarsal bones. Normal tibialis anterior tendon. Normal extensor hallucis longus tendon. Normal extensor digitorum longus tendons. Normal peroneus longus tendon and distal insertion. Normal peroneus brevis tendon and distal insertion. Normal intrinsic muscles of the mid and forefoot region. Normal extensor digitorum brevis muscle. There is mild subcutaneous soft tissue edema along the dorsum of the toes. MRI/Lower Ext/No Jt/w/o IMPRESSION: Degenerative arthrosis at the navicular-intermediate cuneiform joint and second tarsometatarsal joint with mild dorsal osteophyte formation. Mild subcutaneous soft tissue edema along the dorsum of the toes. Electronically Signed: Yossi Baird MD at 9:39 EDT ,
== END | disposition home or self-care (01) ==
LOC: MRI 12:58
PROVIDERS: Visit Provider Podiatrist
DX: M19.071 Primary osteoarthritis, right ankle and foot (principal)
CPT/HCPCS: 73718

== ENCOUNTER → 2023-09-08 | Outpatient (CLI) | payer MEDICAID, SELFPAY ==
--- NOTE | 2023-09-08 08:55 | BI_ITS ---
MAMMOGRAPHY - BILATERAL SCREENING REASON FOR EXAM: Female, 63 years old. Routine annual screening examination. PERTINENT HISTORY: Grandmother with breast cancer. Aunt with breast cancer. TECHNIQUE: Digital bilateral breast wen (3D mammographic acquisition) in the CC and MLO projections. 2-D mediolateral oblique (MLO) and craniocaudad (CC) views of both breasts were obtained. CAD: Full Field Digital Mammography with Computer Added Detection was performed. COMPARISON: Comparison is made with prior study dated January 28, 2022 and January 22, 2021. FINDINGS: Breast Composition: There are scattered areas of fibroglandular density. There are no dominant masses or suspicious calcifications. Stable benign appearing bilateral axillary lymph nodes. No other significant abnormalities are identified. There has been no significant change since the prior study. BI/SCRN MAMM (CAD)W/WEN BILAT IMPRESSION: Stable bilateral screening mammogram. Yearly follow-up mammogram recommended. (A) ASSESSMENT CATEGORY: BIRADS Category 2: Benign. A letter regarding these results will be sent to the patient by the facility within 30 days. Approximately 10% of breast cancers are not detected by mammography. A normal mammogram should not delay biopsy of a clinically suspicious abnormality. [id number] Electronically Signed: Maurice Butler MD at 11:19 EDT ,
== END | disposition home or self-care (01) ==
LOC: OPBI 08:53
PROVIDERS: Referring Provider Nurse Practitioner Family; Visit Provider Nurse Practitioner Family
DX: Z12.31 Encounter for screening mammogram for malignant neoplasm of breast (principal)
CPT/HCPCS: 77063; 77067

== ENCOUNTER → 2024-06-19 | Outpatient (CLI) | payer MEDICAID, SELFPAY ==
[2024-06-19 10:13] LABS: Absolute Lymphocyte Count 1.82 X10^3/uL (0.83-4.51); Absolute Neutrophil Count 3.7 X10^3/uL (2.0-7.7); Basophil# 0.06 X10^3/uL; Basophil% 0.9 % (0-1); Eosinophil# 0.34 X10^3/uL; Eosinophils% 5.1 % (0-5); Hematocrit 40.8 % (37-47); Hemoglobin 13.6 g/dL (12.0-15.0); Lymphocyte # 1.82 X10^3/ul (0.83-4.51); Lymphocyte % 27.5 % (19-41); Mean Corp Hgb Conc 33.3 g/dL (32-36); Mean Corpuscular Volume 90.1 fL (81-99); Mean Platelet Vol. 10.1 fl (6.2-12.0); Monocyte# 0.65 X10^3/uL; Monocyte% 9.8 % (0-10); NRBC Flagged by Analyzer 0 % (0-5); Neutrophil # 3.68 X10^3/uL (2.7-7.7); Neutrophil % 55.5 % (47-70); Platelet Count 241 K/mm3 (150-450); RBC Distribution Width CV 14.2 % (11.6-14.6); RBC Distribution Width SD 46.6 fl (35.1-43.9); Red Blood Count 4.53 M/mm3 (4.2-5.4); White Blood Count 6.6 K/mm3 (4.4-11.0)
[2024-06-19 10:36] LABS: Vitamin D,25 Hydroxy 65.2 ng/mL
[2024-06-19 11:24] LABS: ALB/GLOB Ratio 0.8 RATIO (0.9-2.4); AST(SGOT) 19 U/L (15-37); Alanine Aminotransfer ALT/SGPT 22 U/L (13-56); Albumin, Serum 3.2 g/dL (3.2-5.0); Alkaline Phosphatase 98 U/L (45-117); Anion Gap 7 (5-15); BUN 19 mg/dL (7-18); BUN/Creat Ratio 27.9 RATIO (10-20); Calcium,Total 8.9 mg/dL (8.5-10.1); Chloride 107 mmol/L (98-107); Cholesterol 222 mg/dL (200); Creatinine, Serum 0.68 mg/dL (0.55-1.02); EST Glomerular Filtration Rate 92 mL/min (>60); Est Glom Filt Rate - Afr Amer 112 mL/min (>60); Globulin 4.2 g/dL (2.2-4.2); Glucose 84 mg/dL (74-106); High Density Lipoprotein 49 mg/dL; Potassium 3.9 mmol/L (3.5-5.1); Protein, Total 7.4 g/dL (6.4-8.2); Sodium Level 138 mmol/L (136-145); Thyroid Stim Hormone (TSH) 0.484 uIU/mL (0.358-3.740); Triglycerides 144 mg/dL; Very Low Density Lipoprotein 29 mg/dL (5-40)
[2024-06-19 11:46] LABS: Hemoglobin A1c 5.3 % (3.8-5.6)
== END | disposition home or self-care (01) ==
LOC: VSLAB 08:29
PROVIDERS: PCP Nurse Practitioner Family; Visit Provider Nurse Practitioner Family
DX: I10 Essential (primary) hypertension (principal); E78.2 Mixed hyperlipidemia; R73.03 Prediabetes; E55.9 Vitamin D deficiency, unspecified
CPT/HCPCS: 36415; 80053; 80061; 82306; 83036; 84443; 85025

== ENCOUNTER → 2024-08-08 | Outpatient (CLI) | payer MEDICAID, SELFPAY ==
--- NOTE | 2024-08-08 06:50 | CT_ITS ---
EXAM: CT Chest, Lung Cancer Screening Without Intravenous Contrast CLINICAL INDICATION: NICTOINE DEPENDENCE TECHNIQUE: Axial computed tomography images of the chest without intravenous contrast using low dose (LDCT) lung cancer screening protocol. This CT exam was performed using one or more of the following dose reduction techniques: automated exposure control, adjustment of the mA and/or kV according to patient size, and/or use of iterative reconstruction technique. COMPARISON: No relevant prior studies available. FINDINGS: LUNGS AND PLEURAL SPACES: Lung emphysema. Lingular atelectasis or scarring. Dependent atelectasis. No pneumothorax. No significant effusion. No new suspicious pulmonary nodules. HEART: Unremarkable. No cardiomegaly. No significant pericardial effusion. No significant coronary artery calcifications. BONES/JOINTS: Unremarkable. No acute fracture. No dislocation. SOFT TISSUES: Unremarkable. VASCULATURE: Unremarkable. No thoracic aortic aneurysm. LYMPH NODES: Unremarkable. No enlarged lymph nodes. OTHER FINDINGS: 3 mm nodule along the right minor fissure, unchanged. CT/Low Dose CT Lung Screening IMPRESSION: 1. No new suspicious pulmonary nodules. 2. LUNG-RADS 2: Benign. Continue low-dose CT screening of the chest in 12 tue ths is recommended. Reading Location: [facility]
== END | disposition home or self-care (01) ==
LOC: CT 06:49
PROVIDERS: PCP Nurse Practitioner Family; Referring Provider Nurse Practitioner Family; Visit Provider Nurse Practitioner Family
DX: F17.200 Nicotine dependence, unspecified, uncomplicated (principal)
CPT/HCPCS: 71271

== ENCOUNTER → 2024-09-11 | Outpatient (CLI) | payer MEDICAID, SELFPAY ==
--- NOTE | 2024-09-11 16:07 | BI_ITS ---
EXAM: SCRN MAMM (CAD)W/WEN BILAT 09/11/2024 CLINICAL HISTORY: F, Age 64 y/o , SCREENING TECHNIQUE: Bilateral screening digital breast tomosynthesis with 2D and 3D images. Computer aided detection. COMPARISON: Prior exam(s) dated 09/08/2023, 01/28/2022. FINDINGS: TISSUE DENSITY: The breast tissue is composed of scattered area of fibroglandular density. Bilateral Breast Mammographic Findings: No significant masses, calcifications or other abnormalities are identified. BI/SCRN MAMM (CAD)W/WEN BILAT IMPRESSION: Right Breast: BIRADS 1 NEGATIVE. Left Breast: BIRADS 1 NEGATIVE. OVERALL FINAL ASSESSMENT: BIRADS 1 NEGATIVE. RECOMMENDATION: Routine annual follow-up in 1 Year A letter with findings and recommendations will be mailed to the patient. Reading Location: [facility]
== END | disposition home or self-care (01) ==
LOC: OPBI 16:06
PROVIDERS: PCP Nurse Practitioner Family; Referring Provider Nurse Practitioner Family; Visit Provider Nurse Practitioner Family
DX: Z12.31 Encounter for screening mammogram for malignant neoplasm of breast (principal)
CPT/HCPCS: 77063; 77067

== ENCOUNTER → 2024-09-21 | Outpatient (CLI) | payer MEDICAID, SELFPAY ==
--- NOTE | 2024-09-21 08:50 | RAD_ITS ---
PROCEDURE: LUMBAR SPINE 2 OR 3 VIEWS 09/21/2024 REASON FOR EXAM: LOW BACK PAIN TECHNIQUE: 3 view(s) of the lumbar spine COMPARISON: 10/16/2018 FINDINGS: No fracture or malalignment. Since the 2019 study there is now moderate disc space narrowing L3-4 with degenerative endplate changes. Xpze-xm-ahnqjxgg disc space narrowing L2-3 and L4-5 again noted Status post cholecystectomy RAD/Lumbar Spine 2 or 3 Views IMPRESSION: Since the 2019 study there is now moderate disc space narrowing L3-4 with degen erative endplate changes. Multilevel spondylosis/discogenic change as above. Reading Location: [id number]
--- NOTE | 2024-09-21 08:50 | RAD_ITS ---
PROCEDURE: HIPS B/L MIN 2 VIEWS W/ PELVIS 09/21/2024 REASON FOR EXAM: HIP PAIN TECHNIQUE: AP pelvis, two-view right and two-view left hip, 5 total images COMPARISON: None available FINDINGS: Lower lumbar spondylosis/discogenic change. Bilateral symmetric appearing SI joints and pubic symphysis appear within limits. Givt-cf-[id number] right and mild left hip osteoarthrosis. No fracture or dislocation. RAD/Hips B/L min 2 views w/ Pelvis IMPRESSION: Fqwz-[id number] right and mild left hip osteoarthrosis. Reading Location: [id number]
== END | disposition home or self-care (01) ==
LOC: RAD 08:44
PROVIDERS: PCP Nurse Practitioner Family; Referring Provider Nurse Practitioner Family; Visit Provider Nurse Practitioner Family
DX: M54.50 Low back pain, unspecified (principal); M25.551 Pain in right hip; M25.552 Pain in left hip
CPT/HCPCS: 72100; 73521

== ENCOUNTER 2025-03-07 16:48 | Emergency (ER) | payer MEDICAID, SELFPAY ==
[2025-03-07 16:49] VITALS: BP 174/98; PULSE 105; RESP 16; TEMP 37.5; O2SAT 99; BMI 42.5
[2025-03-07 17:34] LABS: Color, Urine Yellow (Yellow); Glucose, Dipstick Normal (Normal); Ketone-Dipstick Negative (Negative); Leukocyte Esterase-Dipstick 25 /ul (Negative); Nitrite-Dipstick Negative (Negative); Occult Blood-Urine 25 /ul (Negative); Protein-Dipstick 30 mg/dl (Negative); Specific Gravity, Urine 1.020 (1.002-1.030); Urine Bilirubin Dipstick Negative (Negative)
[2025-03-07 17:43] LABS: Mucous, Urine 1+ /hpf (<or=2+); Red Blood Cells-Urine 0-5 SEEN /hpf (0-5); Squamous Epithelial Cells - UA 0-5 SEEN /hpf (5-10)
[2025-03-07 18:52] VITALS: BP 156/79; PULSE 91; RESP 18; TEMP 37.4; O2SAT 93
[2025-03-07 19:00] VITALS: BP 162/71; PULSE 92; RESP 29; TEMP 37.4; O2SAT 92
[2025-03-07 19:28] VITALS: BP 165/71; PULSE 71; RESP 16; TEMP 36.7; O2SAT 95
== END 2025-03-07 19:29 | disposition home or self-care (01) ==
PROVIDERS: Emergency Provider Emergency Medicine; PCP Nurse Practitioner Family; Visit Provider Emergency Medicine
DX: S39.011A Strain of muscle, fascia and tendon of abdomen, initial encounter (principal); J44.9 Chronic obstructive pulmonary disease, unspecified; X58.XXXA Exposure to other specified factors, initial encounter; I10 Essential (primary) hypertension; K21.9 Gastro-esophageal reflux disease without esophagitis; N39.46 Mixed incontinence; M17.0 Bilateral primary osteoarthritis of knee; N32.81 Overactive bladder; E78.00 Pure hypercholesterolemia, unspecified; F17.210 Nicotine dependence, cigarettes, uncomplicated; Z79.899 Other long term (current) drug therapy
CPT/HCPCS: 81001; 99283; A4216

== ENCOUNTER 2025-03-28 13:52 | Emergency (ER) | payer MEDICAID, SELFPAY ==
[2025-03-28 13:55] VITALS: BP 185/88; PULSE 108; RESP 18; TEMP 36.2; O2SAT 185; BMI 40.8
--- NOTE | 2025-03-28 14:11 | RAD_ITS ---
PROCEDURE: CHEST PA AND LATERAL 03/28/2025 REASON FOR EXAM: COUGH TECHNIQUE: Procedure Code: RADCXR Modality: DX Procedure: CHEST PA AND LATERAL COMPARISON: None FINDINGS: Hardware: EKG electrodes are seen. Heart: Borderline cardiomegaly. Mediastinum: The mediastinal contour is unremarkable. Lungs: Prominence of the central pulmonary arteries suggestive of possible pulmonary hypertension. No focal infiltrate is seen. Bones: The bones are unremarkable. RAD/Chest PA and Lateral IMPRESSION: Prominence of the central pulmonary arteries suggestive of possible pulmonary h ypertension. No focal infiltrate is seen. Reading Location: [place] [id number]
--- NOTE | 2025-03-28 14:18 | EDS_ITS ---
HPI History of Present Illness Chief Complaint: Cold Sx Narrative Narrative: Chief complaint and HPI: 64-year-old female with past medical history of asthma, COPD, HTN, HLD, GERD presents for evaluation of nasal congestion, cough, and shortness of breath. Patient states on Tuesday she developed sinus congestion. States has been draining down into her chest causing coughing and shortness of breath worse with exertion. She has been taking ohla-boc-zzfpoio cough medicine. Endorses wheezing. Has been taking her albuterol inhaler as well as maintenance inhaler. She denies any fever, chills, chest pain, abdominal pain, nausea, vomiting. Review of systems: See HPI Medications: As listed on the chart Allergies: As listed on the chart PFSH: Per chart Vital signs: As listed on the chart. Reviewed. Physical exam: Gen: Alert, oriented, NAD, nontoxic Head: Normocephalic, atraumatic Eyes: No sclera icterus, conjunctiva clear ENT: Moist mucous membranes, + nasal congestion Neck: Trachea midline, Full ROM CV: RRR, no murmurs, no peripheral edema Resp: Lungs clear to auscultation bilaterally but expiratory wheezing GI: Abd soft, non-distended, non-tender, no r/r/g Musc: Moves all extremities Skin: Warm, dry Psych: Cooperative, appropriate mood and affect [facility] Medical History Hives Back problem Seasonal allergies COPD (chronic obstructive pulmonary disease) Shortness of breath on exertion Wears glasses Arthritis High cholesterol Back pain Smoker Asthma Leg cramps History of edema History of pain when walking HTN (hypertension) Home Medications Medication Instructions Recorded Last Taken Type albuterol sulfate 90 mcg/actuation 1 - 2 puff inhalati on Q4H PRN PRN 05/04/16 07/24/21 05:30 Rx aerosol inhaler Wheezing ##1 cholecalciferol (vitamin D3) 1,250 50,000 unit PO MO 1 06/19/16 12/08/20 History mcg (50,000 unit) capsule atorvastatin 10 mg tablet 10 mg PO DAILY 06/20/20 07/11/03 History albuterol sulfate 2.5 mg/3 mL 2.5 mg inhalation Q4H AZ N PRN sob 12/05/20 12/08/20 History (0.083 %) solution for nebulization losartan 50 mg tablet 50 mg PO DAILY 07/17/21/06/06 05:30 History pantoprazole 40 mg tablet,delayed mg PO 12/03/22 Unkno wn History release triamcinolone acetonide 0.025 % 1 applic topical QDAY 02/19/25 Unknown History topical cream mirabegron 50 mg tablet,extended 50 mg PO QDAY #90 tab s 03/19/25 Unknown Rx release 24 hr (Myrbetriq) multivitamin 1 tab PO QAM 03/19/25 Unknow n History umeclidinium 62.5 mcg-vilanterol 1 inh inhalation Q24H 03/19/25 Unknown History 25 mcg/actuation powdr for inhalation (Anoro Ellipta) Allergy/AdvReac Type Severity Reaction Status Date / Time bacitracin Allergy Swelling Verified 03/28/25 13:54 Penicillins Allergy Shortness Verified 03/28/25 13:54 of breath Sulfa (Sulfonamide Allergy Hives Verified 03/28/25 13:54 Antibiotics) Family History Other Alcoholism Anxiety Arthritis Asthma Breast cancer CVA (cerebral vascular accident) Heart disease High cholesterol Hypertension Ovarian cancer Suicide attempt Surgical History History of arthroscopy of right knee Hx of colonoscopy with polypectomy Hx of cholecystectomy Social History Smoking Status: Current every day smoker tobacco type: cigarettes alcohol intake: never substance use type: does not use what type of physical activity do you participate in: none do you feel safe at home: Yes EXAM Physical Exam Const Vital Signs: 03/28/25 13:55 03/28/25 14:38 Temperature 97.1 F L Temperature Source Temporal Pulse Rate 108 H 76 Respiratory Rate 18 21 H Blood Pressure 185/88 H Blood Pressure Mean 120 Pulse Ox 185 Oxygen Delivery Method Room Air MDM MDM MDM Narrative Medical decision making narrative: 64-year-old female with past medical history of asthma, COPD, HTN, HLD, GERD presents for evaluation of nasal congestion, cough, and shortness of breath. Patient states on Tuesday she developed sinus congestion. States has been draining down into her chest causing coughing and shortness of breath. Endorses wheezing. Has been taking her albuterol inhaler as well as maintenance inhaler. On presentation, patient no acute distress. Nontoxic-appearing. She is afebrile without hypoxia. Patient is hypertensive here in the emergency de partment. She states she has not taken any of her daily medication today for her hypertension. She is asymptomatic from the hypertension therefore I do not think any further workup is needed. Differential diagnosis includes but is not limited to viral illness, asthma exacerbation, COPD exacerbation, bronchitis, suspect less likely pneumonia. Patient offered COVID, flu, RSV testing but declined. Prednisone and breathing treatments ordered. Chest x-ray ordered. I do not think any laboratory workup is needed at this time. Patient in agreement. Chest x-ray is personally viewed interpreted by me, ED physician. No pneumothorax, pneumonia, effusion, cardiomegaly. Radiology in agreement however show prominence of the central pulmonary arteries suggestive of possible PE pulmonary HTN. Patient states she is concerned she may have a UTI as she had an odor to her urine while using the restroom here. Will add on UA. Patient signed out to oncoming physician, Dr. Marino. He will await UA results. If positive will prescribe antibiotics. Patient will be discharged home. I recommended continue her maintenance inhaler and albuterol. Will send her home with prednisone. Recommend following up with primary care physician. Patient is still hypertensive here in the emergency department but she is asymptomatic. I recommend her taking her blood pressure medication when she gets home. She confirmed understanding. Impression: 1. Asthma/COPD exacerbation 2. Viral syndrome 3. HTN with history of HTN Radiography Diagnostic Testing: Clinical Impression(s) from Imaging Studies Chest X-Ray 03/28/25 14:11 IMPRESSION: Prominence of the central pulmonary arteries suggestive of possible pulmonary hypertension. No focal infiltrate is seen. Reading Location: [facility] Discharge Plan Triage Chief Complaint: Cold Sx ED Provider: Mack Meehan Dx/Rx/DC Orders Clinical Impression: Viral syndrome, COPD exacerbation Instructions: ED Asthma, Acute (Adult), ED COPD Flare, ED Viral Syndrome (Adult) Prescriptions: No Action atorvastatin 10 mg tablet 10 mg PO DAILY Patient Comments: TAKE 1 TABLET BY MOUTH DAILY AT BEDTIME pantoprazole 40 mg tablet,delayed release (DR/EC) PO Patient Comments: TAKE 1 TABLET BY MOUTH EVERY DAY triamcinolone acetonide 0.025 % cream 1 applic topical QDAY multivitamin Tablet 1 tab PO QAM umeclidinium-vilanterol [Anoro Ellipta] 62.5-25 mcg/actuation blister with device 1 inh inhalation Q24H mirabegron [Myrbetriq] 50 mg tablet extended release 24 hr 50 mg PO QDAY Qty: 90 3RF albuterol sulfate 1 INHALER inhaler 1 - 2 puff INHALATION Q4H PRN PRN (Reason: Wheezing) Qty: 1 0RF cholecalciferol (vitamin D3) 50,000 UNIT capsule 50,000 unit PO MO albuterol sulfate 2.5 MG/3 ML solution for nebulization 2.5 mg inhalation Q4H PRN PRN (Reason: sob) Rx Instructions: Use q4 hours and PRN for wheezing losartan 50 mg tablet 50 mg PO DAILY Patient Comments: TAKE 1 TABLET BY MOUTH EVERY DAY Primary Care Provider: Sidra Kaminski Referrals: Sidra Kaminski, [facility] ASSIST[facility] [Primary Care Provider, Family Practice] - 3-5 Days Print Language: Belgian Disposition Disposition: Home, Self Care
[2025-03-28] MEDS: Albuterol 2.5 MG/3 ML VIAL.NEB. INHALATION (14:37)
[2025-03-28 14:38] VITALS: PULSE 76; RESP 21
[2025-03-28 15:53] VITALS: BP 179/74; PULSE 60; RESP 18; O2SAT 96
[2025-03-28 16:01] LABS: Mucous, Urine 0 SEEN /hpf (<or=2+)
[2025-03-28 16:06] LABS: Color, Urine Yellow (Yellow); Glucose, Dipstick Normal (Normal); Ketone-Dipstick Negative (Negative); Leukocyte Esterase-Dipstick 25 /ul (Negative); Nitrite-Dipstick Negative (Negative); Occult Blood-Urine 25 /ul (Negative); Protein-Dipstick 30 mg/dl (Negative); Specific Gravity, Urine 1.020 (1.002-1.030); Urine Bilirubin Dipstick Negative (Negative)
[2025-03-28 16:47] LABS: Red Blood Cells-Urine 0-5 SEEN /hpf (0-5); Squamous Epithelial Cells - UA 0-5 SEEN /hpf (5-10)
[2025-03-28 16:59] VITALS: BP 160/70; PULSE 74; RESP 18; TEMP 36.6; O2SAT 96
== END 2025-03-28 17:08 | disposition home or self-care (01) ==
PROVIDERS: Emergency Provider Surgery; PCP Nurse Practitioner Family; Visit Provider Surgery
DX: J44.1 Chronic obstructive pulmonary disease with (acute) exacerbation (principal); B34.9 Viral infection, unspecified; I10 Essential (primary) hypertension; E78.5 Hyperlipidemia, unspecified; K21.9 Gastro-esophageal reflux disease without esophagitis; E78.00 Pure hypercholesterolemia, unspecified; Z79.899 Other long term (current) drug therapy; F17.210 Nicotine dependence, cigarettes, uncomplicated
CPT/HCPCS: 71046; 81001; 94640; 94668; 99283